=== PATIENT | male | born 1970 | race American Indian/Alaskan Native ===

== ENCOUNTER 2017-04-14 20:44 | Emergency (ER) | payer MEDICAID, OTHER ==
[2017-04-14 20:45] VITALS: BMI 29.9
[2017-04-14 20:50] VITALS: BP 134/59; PULSE 72; RESP 16; TEMP 97.9; O2SAT 98
--- NOTE | 2017-04-14 21:32 | ED PDOC ---
HPI: General Adult Time Seen by Provider: 04/14/17 20:54 Chief Complaint (Nursing): Hip Pain Chief Complaint (Provider): Hip Pain History Per: Patient History/Exam Limitations: no limitations Onset/Duration Of Symptoms: Hrs Current Symptoms Are (Timing): Still Present Additional Complaint(s): 46 y/o male presents to the emergency department with a complaint of a hip pain all day today. Admits to come alcohol ingestion today. Denies any further medical complaints. Pt states he did not fall. PT ambulating at scene according to EMS. Past Medical History Reviewed: Historical Data, Nursing Documentation, Vital Signs Vital Signs: Last Vital Signs Temp 97.9 F 04/14/17 20:48 Pulse 72 04/14/17 20:48 Resp 16 04/14/17 20:48 BP 134/59 L 04/14/17 20:48 Pulse Ox 98 04/14/17 21:33 - Medical History PMH: Anxiety, Asthma, Back Problems, Depression, Diabetes, Gastritis, Seizures ( last reported seizure at age 11.) Denies: Hepatitis, HIV, HTN, Chronic Kidney Disease, Sexually Transmitted Disease - Surgical History Surgical History: Appendectomy - Family History Family History: States: Unknown Family Hx - Social History Current smoker - smoking cessation education provided: Yes (Light Smoker < 10 Cigarettes Daily ) Alcohol: Social Drugs: Cocaine, Other (Heroin ) - Immunization History Hx Tetanus Toxoid Vaccination: No Hx Influenza Vaccination: No Hx Pneumococcal Vaccination: No - Home Medications Home Medications: Ambulatory Orders Medication Instructions Recorded Metformin Hydrochloride [Metformin] 500 mg PO BID 08/25/15 Ibuprofen [Motrin] 600 mg PO Q6 #20 tab 10/20/16 - Allergies Allergies/Adverse Reactions: Allergies Allergy/AdvReac Type Severity Reaction Status Date / Time No Known Allergies Allergy Verified 12/16/16 17:38 Review of Systems ROS Statement: Except As Marked, All Systems Reviewed And Found Negative Musculoskeletal: Positive for: Other (Hip pain ) Physical Exam - Reviewed Nursing Documentation Reviewed: Yes Vital Signs Reviewed: Yes - Physical Exam Appears: Positive for: Non-toxic, No Acute Distress Head Exam: Positive for: ATRAUMATIC, NORMOCEPHALIC Skin: Positive for: Normal Color, Warm, Dry ENT: Positive for: Normal ENT Inspection. Negative for: Pharyngeal Erythema Neck: Positive for: Normal, Supple Cardiovascular/Chest: Positive for: Regular Rate, Rhythm. Negative for: Murmur Respiratory: Positive for: Normal Breath Sounds. Negative for: Accessory Muscle Use, Respiratory Distress Gastrointestinal/Abdominal: Positive for: Normal Exam, Soft. Negative for: Tenderness Extremity: Positive for: Normal ROM. Negative for: Pedal Edema Neurologic/Psych: Positive for: Alert, Oriented - ECG O2 Sat by Pulse Oximetry: 98 (RA) Pulse Ox Interpretation: Normal Medical Decision Making Medical Decision Making: Time: 20:54 Initial Impression: Hip Pain Initial Plan: --Motrin 600 mg PO --Revaluation PT sleeping in room and when nurse comes to give medication he begins to yell that he is in pain than refused medication. Scribe Attestation: Documented by Juany Klein, acting as a scribe for Crystal Cartagena PA-C. Provider Scribe Attestation: All medical record entries made by the Scribe were at my direction and personally dictated by me. I have reviewed the chart and agree that the record accurately reflects my personal performance of the history, physical exam, medical decision making, and the department course for this patient. I have also personally directed, reviewed, and agree with the discharge instructions and disposition. Disposition - Clinical Impression Clinical Impression: Back pain - Patient ED Disposition Is Patient to be Admitted: No Counseled Patient/Family Regarding: Diagnosis, Need For Followup - Disposition Referrals: [facility] [Outside] [facility] [Outside] Disposition: Routine/Home Disposition Time: 22:15 Condition: GOOD Instructions: Acute Low Back Pain (ED)
== END 2017-04-14 22:27 | disposition home or self-care (01) ==
LOC: H.ER 20:44
DX: M54.9 Dorsalgia, unspecified (principal); M25.559 Pain in unspecified hip; E11.9 Type 2 diabetes mellitus without complications; F17.210 Nicotine dependence, cigarettes, uncomplicated; F32.9 Major depressive disorder, single episode, unspecified; F41.9 Anxiety disorder, unspecified; J45.909 Unspecified asthma, uncomplicated; Z79.84 Long term (current) use of oral hypoglycemic drugs

== ENCOUNTER 2017-05-12 04:40 | Emergency (ER) | payer SELFPAY ==
[2017-05-12 04:41] VITALS: BMI 29.9
[2017-05-12 05:03] VITALS: BP 137/76; PULSE 105; RESP 18; TEMP 98.3; O2SAT 100
--- NOTE | 2017-05-12 06:12 | ED PDOC ---
HPI: Skin/Bite Injury Time Seen by Provider: 05/12/17 04:57 Chief Complaint (Nursing): Abnormal Skin Integrity Chief Complaint (Provider): Bug bites History Per: Patient History/Exam Limitations: no limitations Onset/Duration Of Symptoms: Mins (prior to arrival) Current Symptoms Are (Timing): Still Present Additional Complaint(s): Gui Jean is a 46 year old male with previous medical history of eczema, anxiety, and substance abuse, who presents to the emergency department with complaints of diffused bug bites associated with itching and dry skin ongoing prior to arrival. Denies any fever or further medical complaints. PMD: none provided Past Medical History Reviewed: Historical Data, Nursing Documentation, Vital Signs Vital Signs: Last Vital Signs Temp 98.3 F 05/12/17 05:01 Pulse 105 H 05/12/17 05:01 Resp 18 05/12/17 05:01 BP 137/76 05/12/17 05:01 Pulse Ox 100 05/12/17 20:29 - Medical History PMH: Anxiety, Asthma, Back Problems, Depression, Diabetes, Gastritis, Seizures ( last reported seizure at age 11.) Denies: Hepatitis, HIV, HTN, Chronic Kidney Disease, Sexually Transmitted Disease - Surgical History Surgical History: Appendectomy - Family History Family History: States: Unknown Family Hx - Social History Current smoker - smoking cessation education provided: No Alcohol: > 2 Drinks/Day Drugs: Denies - Immunization History Hx Tetanus Toxoid Vaccination: No Hx Influenza Vaccination: No Hx Pneumococcal Vaccination: No - Home Medications Home Medications: Ambulatory Orders Medication Instructions Recorded Metformin Hydrochloride [Metformin] 500 mg PO BID 08/25/15 Ibuprofen [Motrin] 600 mg PO Q6 #20 tab 10/20/16 Cephalexin [Keflex] 500 mg PO Q6H #28 capsule 05/12/17 - Allergies Allergies/Adverse Reactions: Allergies Allergy/AdvReac Type Severity Reaction Status Date / Time No Known Allergies Allergy Verified 12/16/16 17:38 Review of Systems ROS Statement: Except As Marked, All Systems Reviewed And Found Negative Constitutional: Negative for: Fever Skin: Positive for: Rash (diffused, dry and itchy bug bites) Physical Exam - Reviewed Nursing Documentation Reviewed: Yes Vital Signs Reviewed: Yes - Physical Exam Appears: Positive for: Well, Non-toxic, No Acute Distress Head Exam: Positive for: ATRAUMATIC, NORMAL INSPECTION, NORMOCEPHALIC Skin: Positive for: Normal Color, Warm, Rash (bites on abdomen and left arm. Left arm has mild erythema and dry skin surrounding affected area) Respiratory: Positive for: CNT, Normal Breath Sounds Gastrointestinal/Abdominal: Negative for: Tenderness Back: Negative for: L CVA Tenderness, R CVA Tenderness Neurologic/Psych: Positive for: Alert, Oriented - ECG O2 Sat by Pulse Oximetry: 100 (RA) Pulse Ox Interpretation: Normal Medical Decision Making Medical Decision Making: Initial Impression: Bug bites Initial Plan: * Keflex 500mg PO Upon provider reevaluation patient is medically stable and requires no further treatment in the ED at this time. Patient will be discharged home with Rx for Keflex 500mg. Counseling was provided and all questions were answered regarding diagnosis and need for follow up with PCP. There is agreement to discharge plan. Return if symptoms persist or worsen. Clinical Impression: Eczema Scribe Attestation: Documented by Karli Moulton, acting as a scribe for Mathew Marr MD. Provider Scribe Attestation: All medical record entries made by the Scribe were at my direction and personally dictated by me. I have reviewed the chart and agree that the record accurately reflects my personal performance of the history, physical exam, medical decision making, and the department course for this patient. I have also personally directed, reviewed, and agree with the discharge instructions and disposition. Disposition - Clinical Impression Clinical Impression: Eczema - Patient ED Disposition Is Patient to be Admitted: No Counseled Patient/Family Regarding: Studies Performed - Disposition Referrals: [facility] [Outside] [facility] [Outside] Disposition: Routine/Home Disposition Time: 05:30 Condition: IMPROVED Additional Instructions: follow up in clinic in 2 days for wound check return to the ED with any worsening or concerning symptoms. Prescriptions: Cephalexin [Keflex] 500 mg PO Q6H #28 capsule Instructions: Contact Dermatitis (ED)
== END 2017-05-12 06:13 | disposition home or self-care (01) ==
LOC: H.ER 04:40
DX: L20.9 Atopic dermatitis, unspecified (principal); E11.9 Type 2 diabetes mellitus without complications; Z79.84 Long term (current) use of oral hypoglycemic drugs

== ENCOUNTER 2017-09-21 10:46 | Emergency (ER) | payer MEDICAID, SELFPAY ==
[2017-09-21 10:49] VITALS: TEMP 97.4; O2SAT 98
[2017-09-21 10:50] VITALS: BMI 25.0
--- NOTE | 2017-09-21 11:43 | ED PDOC ---
HPI: General Adult Time Seen by Provider: 09/21/17 11:02 Chief Complaint (Nursing): Headache Chief Complaint (Provider): medical eval. History Per: Patient History/Exam Limitations: no limitations Additional Complaint(s): 47yo M in ED with hx of substance abuse, syncope-in ER after EMS found pt-pt explains that his legs gave out from under him and fell backward hitting his head on the pavement. admits to mild nausea without vomiting and PEARSON-diffuse mild. denies numbness, weakness, unstable gait or difficultly denies vision changes with concentration denies vertigo or chest pain. Pt is with slurred speech Past Medical History Reviewed: Historical Data, Nursing Documentation, Vital Signs Vital Signs: Last Vital Signs Temp 97.4 F L 09/21/17 10:49 Pulse 78 09/21/17 10:49 Resp 16 09/21/17 10:49 BP 114/80 09/21/17 10:49 Pulse Ox 98 09/21/17 12:34 - Medical History PMH: Anxiety, Asthma, Back Problems, Depression, Fractures (Ulnar Fracture), Gastritis, Chronic Kidney Disease, Seizures (last seizure age 11) Denies: Diabetes, Hepatitis, HIV, HTN, Sexually Transmitted Disease - Surgical History Surgical History: Appendectomy - Family History Family History: States: No Known Family Hx - Home Medications Home Medications: Ambulatory Orders Medication Instructions Recorded Metformin Hydrochloride [Metformin] 500 mg PO BID 08/25/15 Ibuprofen [Motrin] 600 mg PO Q6 #20 tab 10/20/16 Cephalexin [Keflex] 500 mg PO Q6H #28 capsule 05/12/17 Cephalexin [Keflex] 500 mg PO TID #21 capsule 07/18/17 Ibuprofen [Motrin] 600 mg PO Q6 PRN #15 tab 07/18/17 Fluconazole [Diflucan] 150 mg PO QWK #4 tab 08/04/17 Ibuprofen [Motrin] 600 mg PO Q6 PRN #15 tab 09/15/17 - Allergies Allergies/Adverse Reactions: Allergies Allergy/AdvReac Type Severity Reaction Status Date / Time No Known Allergies Allergy Verified 09/17/17 23:18 Review of Systems ROS Statement: Except As Marked, All Systems Reviewed And Found Negative Constitutional: Negative for: Fever, Chills, Weakness, Malaise Eyes: Negative for: Vision Change Cardiovascular: Negative for: Chest Pain, Palpitations Gastrointestinal: Positive for: Nausea. Negative for: Vomiting, Abdominal Pain Neurological: Positive for: Headache. Negative for: Weakness, Numbness, Incoordination, Change in Speech, Confusion, Seizures, Altered Mental Status, Dizziness Physical Exam - Reviewed Nursing Documentation Reviewed: Yes Vital Signs Reviewed: Yes - Physical Exam Appears: Positive for: Non-toxic, No Acute Distress Head Exam: Positive for: ATRAUMATIC, NORMAL INSPECTION, NORMOCEPHALIC Skin: Positive for: Normal Color, Warm, DRY Eye Exam: Positive for: Normal appearance, EOMI, Conjunctival injection. Negative for: PERRL (pintpoint pupils b/l, ) ENT: Positive for: Normal ENT Inspection Cardiovascular/Chest: Positive for: Regular Rate, Rhythm Respiratory: Positive for: CNT, Normal Breath Sounds Extremity: Positive for: Normal ROM Neurologic/Psych: Positive for: Alert, mechanic insulator II-XII (intact), Oriented, Other (pt with slurred speech, and unstable gait. pt is somnolent. ). Negative for: Motor /Sensory Deficits - Laboratory Results Result Diagrams: 09/21/17 11:30 09/21/17 11:30 - ECG O2 Sat by Pulse Oximetry: 98 - CT Scan/US head Other Rad Studies (CT/US): Radiology Report Reviewed (no actue bleed noted. ) - Progress ED Course And Treament: Orders Category Date Time Status HEAD W/O CONTRAST [CT] Stat CT 09/21/17 11:11 Completed ALCOHOL SERUM Stat Chem 09/21/17 11:30 Received COMP METABOLIC PANEL Stat Chem 09/21/17 11:30 Received DRUG SCREEN, URINE Stat Chem 09/21/17 11:14 Ordered CBC (WITH DIFFERENTIAL) Stat ROBIN 09/21/17 11:30 Completed Ondansetron [Zofran Inj] Med 09/21/17 11:30 Discontinued 4 mg .ROUTE .STK-MED ONE Ondansetron [Zofran Inj] Med 09/21/17 11:11 Discontinued 4 mg IVP STAT STA Glucose, Blood, POC STAT Pt Care 09/21/17 11:11 Active Medical Decision Making Medical Decision Making: pt will be d.c home no acute abnormality in labs stable well appearing and sober clinically 09/21/17 09/21/17 11:30 11:30 WBC 6.5 RBC 4.58 Hgb 13.2 Hct 38.8 MCV 84.8 MCH 28.7 MCHC 33.9 RDW 13.3 Plt Count 287 MPV 7.5 Neut % (Auto) 45.2 L Lymph % (Auto) 36.2 Glades % (Auto) 9.4 Eos % (Auto) 8.3 H Baso % (Auto) 0.9 Neut # 2.9 Lymph # 2.4 Glades # 0.6 Eos # 0.5 Baso # 0.1 Sodium 145 Potassium 3.9 Chloride 107 Carbon Dioxide 28 Anion Gap 13 BUN 14 Creatinine 0.6 L Est GFR ( Amer) > 60 Est GFR (Non-Af Amer) > 60 Random Glucose 88 Calcium 8.8 Total Bilirubin 0.4 AST 60 H ALT 83 H Alkaline Phosphatase 52 Total Protein 7.5 Albumin 4.0 Globulin 3.5 Albumin/Globulin Ratio 1.1 Alcohol, Quantitative < 10 Disposition - Clinical Impression Clinical Impression: Fall - Patient ED Disposition Is Patient to be Admitted: No - Disposition Disposition: Routine/Home Disposition Time: 14:27 Condition: IMPROVED Instructions: Fall Prevention for Older Adults (ED) Forms: [facility] (Tongan)
[2017-09-21 11:52] LABS: BASO # 0.1 K/uL (0.0-0.2); BASO % 0.9 % (0.0-2.0); EOS # 0.5 K/uL (0.0-0.7); EOS % 8.3 % (0.0-4.0); HEMATOCRIT 38.8 % (35.0-51.0); LYMPH # 2.4 K/uL (1.0-4.3); LYMPH % 36.2 % (20.0-40.0); MEAN CELL VOLUME 84.8 fl (80.0-94.0); MEAN CORPUSCULAR HEMOGLOBIN 28.7 pg (27.0-31.0); MEAN CORPUSCULAR HGB CONC 33.9 g/dL (33.0-37.0); MEAN PLATELET VOLUME 7.5 fl (7.2-11.7); MONO # 0.6 K/uL (0.0-0.8); MONO % 9.4 % (0.0-10.0); NEUT # 2.9 K/uL (1.8-7.0); NEUT % 45.2 % (50.0-75.0); NRBC % 0.1 % (0.0-0.0); RED CELL DISTRIBUTION WIDTH 13.3 % (11.5-14.5); WHITE BLOOD COUNT 6.5 K/uL (4.8-10.8)
--- NOTE | 2017-09-21 12:13 | CT ---
PROCEDURE: CT HEAD WITHOUT CONTRAST. HISTORY: head injury sustained after fall unknown Etoh COMPARISON: Comparison made with CT scan brain dated 09/13/2017 TECHNIQUE: Axial computed tomography images were obtained through the head/brain without intravenous contrast. Radiation dose: Total exam DLP = 1159.43 mGy-cm. This CT exam was performed using one or more of the following dose reduction techniques: Automated exposure control, adjustment of the mA and/or kV according to patient size, and/or use of iterative reconstruction technique. FINDINGS: HEMORRHAGE: No acute parenchymal, subarachnoid or extra-axial hemorrhage. BRAIN: Suspect minor chronic periventricular white matter ischemic changes. Mild central volume loss. VENTRICLES: No obstructive hydrocephalus. CALVARIUM: There are no acute calvarial fractures. PARANASAL SINUSES: Mild mucosal thickening seen within both maxillary antra left greater than right. There is also mild mucosal thickening within the ethmoid air complex. Minimal mucosal thickening within the right chamber sphenoid sinus improved since prior study. . Frontal sinus remains hypoplastic unchanged. . MASTOID AIR CELLS: Unremarkable as visualized. No inflammatory changes. OTHER FINDINGS: None. IMPRESSION: No acute intracranial hemorrhage. Suspect minor chronic periventricular white matter ischemic changes. Mild central volume loss
[2017-09-21 12:17] LABS: ALB/GLOB RATIO 1.1 (1.0-2.1); ALCOHOL SERUM < 10 mg/dl (0-10); ALKALINE PHOSPHATASE 52 U/L (38-126); ALT/SGPT 83 U/L (21-72); AST/SGOT 60 U/L (17-59); BILIRUBIN,TOTAL 0.4 mg/dl (0.2-1.3); BLOOD UREA NITROGEN 14 mg/dl (9-20); CALCIUM 8.8 mg/dL (8.4-10.2); CARBON DIOXIDE 28 mmol/L (22-30); CHLORIDE 107 mmol/L (98-107); GFR AFRICAN-AMERICAN > 60; GLUCOSE,RANDOM 88 mg/dL (75-110); POTASSIUM 3.9 MMOL/L (3.6-5.0); SODIUM 145 mmol/l (132-148); TOTAL PROTEIN 7.5 G/DL (6.3-8.2)
[2017-09-21 17:03] VITALS: BP 107/59; PULSE 64; RESP 18
== END 2017-09-21 16:18 | disposition home or self-care (01) ==
LOC: H.ER 10:46
DX: S09.90XA Unspecified injury of head, initial encounter (principal); W19.XXXA Unspecified fall, initial encounter; Y92.89 Other specified places as the place of occurrence of the external cause; F19.10 Other psychoactive substance abuse, uncomplicated; F32.9 Major depressive disorder, single episode, unspecified; F41.9 Anxiety disorder, unspecified; J45.909 Unspecified asthma, uncomplicated; N18.9 Chronic kidney disease, unspecified; Z79.84 Long term (current) use of oral hypoglycemic drugs
CPT/HCPCS: 70450; 80053; 80320; 82948; 85025; 96374; 99285; J2405

== ENCOUNTER 2017-10-19 18:43 | Emergency (ER) | payer MEDICAID, SELFPAY ==
[2017-10-19 18:44] VITALS: BMI 25.0
[2017-10-19 18:49] VITALS: BP 115/52; PULSE 130; RESP 16; TEMP 98.3; O2SAT 99
[2017-10-19] MEDS ORDERED: Sodium Chloride 0.9% 1,000 ML IV STA (19:43)
[2017-10-19] MEDS ORDERED: Levalbuterol 1.25 MG/3 ML Inhal Soln UD INH ONE (19:43)
--- NOTE | 2017-10-19 19:46 | ED PDOC ---
HPI: Psych/Substance Abuse Time Seen by Provider: 10/19/17 19:35 Chief Complaint (Nursing): Substance Abuse Chief Complaint (Provider): substance abuse History Per: Patient (47 y/o male well known to ED here for sob. H/o asthma h/o polysubstance abuse. Admits use of heroine today. Denies any cough/fever.) Past Medical History Reviewed: Historical Data, Nursing Documentation, Vital Signs Vital Signs: Last Vital Signs Temp 98.3 F 10/19/17 18:45 Pulse 130 H 10/19/17 18:45 Resp 16 10/19/17 18:45 BP 115/52 L 10/19/17 18:45 Pulse Ox 99 10/19/17 18:45 - Medical History PMH: Anxiety, Asthma, Back Problems, Depression, Fractures (Ulnar Fracture), Gastritis, Chronic Kidney Disease, Seizures (last seizure age 11) Denies: Diabetes, Hepatitis, HIV, HTN, Sexually Transmitted Disease - Surgical History Surgical History: Appendectomy - Family History Family History: States: No Known Family Hx - Home Medications Home Medications: Ambulatory Orders Medication Instructions Recorded Metformin Hydrochloride [Metformin] 500 mg PO BID 08/25/15 Ibuprofen [Motrin] 600 mg PO Q6 #20 tab 10/20/16 Cephalexin [Keflex] 500 mg PO Q6H #28 capsule 05/12/17 Cephalexin [Keflex] 500 mg PO TID #21 capsule 07/18/17 Ibuprofen [Motrin] 600 mg PO Q6 PRN #15 tab 07/18/17 Fluconazole [Diflucan] 150 mg PO QWK #4 tab 08/04/17 Ibuprofen [Motrin] 600 mg PO Q6 PRN #15 tab 09/15/17 - Allergies Allergies/Adverse Reactions: Allergies Allergy/AdvReac Type Severity Reaction Status Date / Time No Known Allergies Allergy Verified 09/17/17 23:18 Review of Systems ROS Statement: Except As Marked, All Systems Reviewed And Found Negative Physical Exam - Reviewed Nursing Documentation Reviewed: Yes Vital Signs Reviewed: Yes - Physical Exam Appears: Positive for: Well, Non-toxic, No Acute Distress Head Exam: Positive for: ATRAUMATIC, NORMAL INSPECTION, NORMOCEPHALIC Skin: Positive for: Normal Color, Warm, DRY Eye Exam: Positive for: EOMI, Normal appearance, PERRL ENT: Positive for: Normal ENT Inspection Neck: Positive for: Normal, Painless ROM Cardiovascular/Chest: Positive for: Regular Rate, Rhythm Respiratory: Positive for: Normal Breath Sounds, Wheezing Gastrointestinal/Abdominal: Positive for: Normal Exam, Bowel Sounds, Soft Back: Positive for: Normal Inspection Extremity: Positive for: Normal ROM Neurologic/Psych: Positive for: Alert, Oriented, Other (appears sleepy; easily arousable and verbally responsive to questions) - ECG O2 Sat by Pulse Oximetry: 99 - Progress ED Course And Treament: xopenex x 1 treatment ordered ns 1 liter wide open ordered ekg 109 sinus tachycardia no ectopy no acute changes left prior to treatment/labs Disposition - Clinical Impression Clinical Impression: Polysubstance (excluding opioids) dependence - Patient ED Disposition Is Patient to be Admitted: No - Disposition Disposition: Left W/O Treatment Disposition Time: 20:28 Condition: FAIR Forms: [facility] (Chinese)
--- NOTE | 2017-10-20 11:52 | CARD ---
APPROVED REPORT EKG Measurement Heart [id number] ND [id number] <Conclusion> Sinus tachycardia Otherwise normal ECG
== END 2017-10-19 20:27 | disposition left against medical advice (07) ==
LOC: H.ER 18:43
DX: F19.10 Other psychoactive substance abuse, uncomplicated (principal); F32.9 Major depressive disorder, single episode, unspecified; F41.9 Anxiety disorder, unspecified; J45.909 Unspecified asthma, uncomplicated; N18.9 Chronic kidney disease, unspecified; Z79.84 Long term (current) use of oral hypoglycemic drugs

== ENCOUNTER 2017-10-21 20:46 | Emergency (ER) | payer MEDICAID, SELFPAY ==
[2017-10-21 20:47] VITALS: BMI 25.0
[2017-10-21 21:17] VITALS: RESP 17; TEMP 98.1
--- NOTE | 2017-10-21 21:42 | ED PDOC ---
HPI: Psych/Substance Abuse Time Seen by Provider: 10/21/17 21:37 Chief Complaint (Nursing): Substance Abuse History Per: EMS (Brought by EMS for ? intoxication. Pt admits to heroin uase last used today.) Modifying Factor(s): Narcotics Past Medical History Vital Signs: Last Vital Signs Temp 98.1 F 10/21/17 21:14 Pulse 81 10/21/17 21:14 Resp 17 10/21/17 21:14 BP 133/81 10/21/17 21:14 Pulse Ox 100 10/21/17 21:14 - Medical History PMH: Anxiety, Asthma, Back Problems, Depression, Fractures (Ulnar Fracture), Gastritis, Chronic Kidney Disease, Seizures (last seizure age 11) Denies: Diabetes, Hepatitis, HIV, HTN, Sexually Transmitted Disease - Surgical History Surgical History: Appendectomy - Family History Family History: States: Unknown Family Hx - Home Medications Home Medications: Ambulatory Orders Medication Instructions Recorded Metformin Hydrochloride [Metformin] 500 mg PO BID 08/25/15 Ibuprofen [Motrin] 600 mg PO Q6 #20 tab 10/20/16 Cephalexin [Keflex] 500 mg PO Q6H #28 capsule 05/12/17 Cephalexin [Keflex] 500 mg PO TID #21 capsule 07/18/17 Ibuprofen [Motrin] 600 mg PO Q6 PRN #15 tab 07/18/17 Fluconazole [Diflucan] 150 mg PO QWK #4 tab 08/04/17 Ibuprofen [Motrin] 600 mg PO Q6 PRN #15 tab 09/15/17 - Allergies Allergies/Adverse Reactions: Allergies Allergy/AdvReac Type Severity Reaction Status Date / Time No Known Allergies Allergy Verified 09/17/17 23:18 Review of Systems Review Of Systems: ROS cannot be obtained secondary to pt's inabilty to answer questions. Physical Exam - Physical Exam Appears: Positive for: Non-toxic, No Acute Distress Head Exam: Positive for: ATRAUMATIC, NORMAL INSPECTION, NORMOCEPHALIC Skin: Positive for: Normal Color, Warm, DRY Cardiovascular/Chest: Positive for: Regular Rate, Rhythm Respiratory: Positive for: CNT, Normal Breath Sounds Extremity: Positive for: Normal ROM Neurologic/Psych: Negative for: Alert (Sleepy arousable), Motor/Sensory Deficits - ECG O2 Sat by Pulse Oximetry: 100 Disposition - Clinical Impression Clinical Impression: Polysubstance abuse - Patient ED Disposition Is Patient to be Admitted: Transfer of Care - Disposition Disposition: Transfer of Care Disposition Time: 00:00 Condition: FAIR Forms: [facility] (Maori) Patient Signed Over To: Mathew Marr
--- NOTE | 2017-10-22 00:47 | ED PDOC ---
- ECG O2 Sat by Pulse Oximetry: 100 (RA) Pulse Ox Interpretation: Normal Medical Decision Making Medical Decision Makin:00 Patient signed out to me by Dr. Camara pending clinical sobriety. Reassess --pt comfortable, alert and oriented, ambulating w stable gait. Scribe Attestation: Documented by Matthew Donohue acting as a scribe for Mathew Marr MD. Provider Attestation: All medical record entries made by the Scribe were at my direction and personally dictated by me. I have reviewed the chart and agree that the record accurately reflects my personal performance of the history, physical exam, medical decision making, and the department course for this patient. I have also personally directed, reviewed, and agree with the discharge instructions and disposition. Disposition - Clinical Impression Clinical Impression: Polysubstance abuse - POA Present On Arrival: None - Disposition Disposition: Routine/Home Disposition Time: 04:00 Condition: IMPROVED Additional Instructions: follow up with your primary doctor in 1-2 days return to the ED with any worsening or concerning symptoms Forms: [employer] (Gibraltarian)
[2017-10-22 04:53] VITALS: BP 118/75; PULSE 72
[2017-10-23 12:30] VITALS: O2SAT 100
== END 2017-10-22 04:58 | disposition home or self-care (01) ==
LOC: H.ER 20:46
DX: F19.10 Other psychoactive substance abuse, uncomplicated (principal); F32.9 Major depressive disorder, single episode, unspecified; F41.9 Anxiety disorder, unspecified; J45.909 Unspecified asthma, uncomplicated; N18.9 Chronic kidney disease, unspecified; Z79.84 Long term (current) use of oral hypoglycemic drugs

== ENCOUNTER 2017-10-23 23:35 | Emergency (ER) | payer MEDICAID, SELFPAY ==
[2017-10-23 23:35] VITALS: BMI 25.0
[2017-10-23 23:39] VITALS: BP 127/86; PULSE 80; RESP 16; TEMP 97.2; O2SAT 100
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
== END 2017-10-24 05:47 | disposition home or self-care (01) ==
LOC: H.ER 23:35
DX: F11.10 Opioid abuse, uncomplicated (principal); M54.9 Dorsalgia, unspecified; F32.9 Major depressive disorder, single episode, unspecified; F41.9 Anxiety disorder, unspecified; G89.29 Other chronic pain; J45.909 Unspecified asthma, uncomplicated; Z79.84 Long term (current) use of oral hypoglycemic drugs

== ENCOUNTER 2017-10-24 08:36 | Emergency (ER) | payer MEDICAID, SELFPAY ==
[2017-10-24 08:51] VITALS: BMI 29.9
[2017-10-24 08:52] VITALS: RESP 20
--- NOTE | 2017-10-24 09:51 | ED PDOC ---
HPI: SOB/CHF/COPD Time Seen by Provider: 10/24/17 09:05 Chief Complaint (Nursing): Shortness Of Breath Chief Complaint (Provider): Shortness of breath History Per: Patient History/Exam Limitations: no limitations Additional Complaint(s): Gui is a 47 y/o male with a history of polysubstance abuse who presents to the ED complaining of shortness of breath. Upon provider's arrival to exam room , patient is sleeping and has no complaints. He is well known to provider and ED. PMD: None Provided Past Medical History Reviewed: Historical Data, Nursing Documentation, Vital Signs Vital Signs: Last Vital Signs Temp 97.6 F 10/24/17 08:51 Pulse 50 L 10/24/17 08:51 Resp 20 10/24/17 08:51 BP 143/78 10/24/17 08:51 Pulse Ox 96 10/24/17 14:26 - Medical History PMH: Anxiety, Asthma, Back Problems, Depression, Fractures (Ulnar Fracture), Gastritis, Chronic Kidney Disease, Seizures (last seizure age 11) Denies: Diabetes, Hepatitis, HIV, HTN, Sexually Transmitted Disease - Surgical History Surgical History: Appendectomy - Family History Family History: States: Unknown Family Hx - Home Medications Home Medications: Ambulatory Orders Medication Instructions Recorded Metformin Hydrochloride [Metformin] 500 mg PO BID 08/25/15 Ibuprofen [Motrin] 600 mg PO Q6 #20 tab 10/20/16 Cephalexin [Keflex] 500 mg PO Q6H #28 capsule 05/12/17 Cephalexin [Keflex] 500 mg PO TID #21 capsule 07/18/17 Ibuprofen [Motrin] 600 mg PO Q6 PRN #15 tab 07/18/17 Fluconazole [Diflucan] 150 mg PO QWK #4 tab 08/04/17 Ibuprofen [Motrin] 600 mg PO Q6 PRN #15 tab 09/15/17 - Allergies Allergies/Adverse Reactions: Allergies Allergy/AdvReac Type Severity Reaction Status Date / Time No Known Allergies Allergy Verified 10/23/17 23:37 Review of Systems ROS Statement: Except As Marked, All Systems Reviewed And Found Negative Respiratory: Positive for: Shortness of Breath Physical Exam - Reviewed Nursing Documentation Reviewed: Yes Vital Signs Reviewed: Yes - Physical Exam Appears: Positive for: Well, Non-toxic, No Acute Distress Skin: Positive for: Normal Color, Warm, Dry Cardiovascular/Chest: Positive for: Regular Rate, Rhythm Respiratory: Positive for: Normal Breath Sounds. Negative for: Respiratory Distress Gastrointestinal/Abdominal: Positive for: Normal Exam Neurologic/Psych: Positive for: Alert, Oriented - Laboratory Results Result Diagrams: 10/24/17 11:23 10/24/17 11:23 - ECG O2 Sat by Pulse Oximetry: 96 (RA) Pulse Ox Interpretation: Normal Medical Decision Making Medical Decision Making: Time: 9:40 Initial Impression: Initial Plan: --CMP --Urine Drug Screen --CBC Time: 12:59 --Chest XR Time: 2:00 --Patient feels better --Chest XR was reviewed and is negative --Patient is stable for discharge home Scribe Attestation: Documented by Alonso Lino, acting as a scribe for Mathew Marr MD Provider Scribe Attestation: All medical record entries made by the Scribe were at my direction and personally dictated by me. I have reviewed the chart and agree that the record accurately reflects my personal performance of the history, physical exam, medical decision making, and the department course for this patient. I have also personally directed, reviewed, and agree with the discharge instructions and disposition. Disposition - Clinical Impression Clinical Impression: Shortness of breath - Patient ED Disposition Is Patient to be Admitted: No - Disposition Referrals: [facility] [Outside] [facility] [Outside] Disposition: Routine/Home Disposition Time: 11:00 Condition: IMPROVED Additional Instructions: follow up with your primary doctor in 1-2 days return to the ED with any worsening or concerning symptoms Instructions: Dyspnea (ED) Forms: [employer] (Bermudian)
[2017-10-24 11:30] LABS: BASO % 0.6 % (0.0-2.0); EOS # 0.7 K/uL (0.0-0.7); EOS % 11.9 % (0.0-4.0); HEMATOCRIT 38.2 % (35.0-51.0); LYMPH # 1.6 K/uL (1.0-4.3); LYMPH % 26.8 % (20.0-40.0); MEAN CELL VOLUME 90.3 fl (80.0-94.0); MEAN CORPUSCULAR HEMOGLOBIN 28.7 pg (27.0-31.0); MEAN CORPUSCULAR HGB CONC 31.7 g/dL (33.0-37.0); MEAN PLATELET VOLUME 7.6 fl (7.2-11.7); MONO # 0.6 K/uL (0.0-0.8); MONO % 10.2 % (0.0-10.0); NEUT # 2.9 K/uL (1.8-7.0); NEUT % 50.5 % (50.0-75.0); NRBC % 0.1 % (0.0-0.0); RED CELL DISTRIBUTION WIDTH 15.1 % (11.5-14.5); WHITE BLOOD COUNT 5.8 K/uL (4.8-10.8)
[2017-10-24 11:40] LABS: BILIRUBIN,TOTAL 0.9 mg/dl (0.2-1.3); CALCIUM 8.6 mg/dL (8.4-10.2); CARBON DIOXIDE 25 mmol/L (22-30); CHLORIDE 110 mmol/L (98-107); GFR AFRICAN-AMERICAN > 60; GLUCOSE,RANDOM 84 mg/dL (75-110); SODIUM 144 mmol/l (132-148)
[2017-10-24 11:42] LABS: ALKALINE PHOSPHATASE 46 U/L (38-126); ALT/SGPT 63 U/L (21-72); AST/SGOT 59 U/L (17-59); BLOOD UREA NITROGEN 11 mg/dl (9-20); POTASSIUM 4.8 MMOL/L (3.6-5.0); TOTAL PROTEIN 6.9 G/DL (6.3-8.2)
--- NOTE | 2017-10-24 13:57 | RAD ---
HISTORY: sob COMPARISON: Portable chest 11/25/2016. FINDINGS: LUNGS: No active pulmonary disease. PLEURA: No significant pleural effusion identified, no pneumothorax apparent. CARDIOVASCULAR: Normal. OSSEOUS STRUCTURES: No significant abnormalities. VISUALIZED UPPER ABDOMEN: Normal. OTHER FINDINGS: None. IMPRESSION: No interval acute cardiopulmonary disease appreciated.
[2017-10-24 16:36] VITALS: BP 120/70; PULSE 76; TEMP 98.6; O2SAT 98
== END 2017-10-24 16:36 | disposition home or self-care (01) ==
LOC: H.ER 08:36
DX: R06.00 Dyspnea, unspecified (principal); J45.909 Unspecified asthma, uncomplicated; F32.9 Major depressive disorder, single episode, unspecified; F41.9 Anxiety disorder, unspecified; Z79.84 Long term (current) use of oral hypoglycemic drugs

== ENCOUNTER 2017-11-03 06:38 | Emergency (ER) | payer MEDICAID, OTHER ==
[2017-11-03 06:39] VITALS: BMI 29.9
[2017-11-03 06:47] VITALS: BP 106/72; PULSE 88; RESP 16; TEMP 98; O2SAT 95
--- NOTE | 2017-11-03 08:27 | ED PDOC ---
Lower Extremity Pain/Injury Time Seen by Provider: 11/03/17 07:32 Chief Complaint (Nursing): Lower Extremity Problem/Injury Past Medical History Vital Signs: Last Vital Signs Temp 98 F 11/03/17 06:44 Pulse 88 11/03/17 06:44 Resp 16 11/03/17 06:44 BP 106/72 11/03/17 06:44 Pulse Ox 95 11/03/17 06:44 - Medical History PMH: Anxiety, Asthma, Back Problems, Depression, Fractures (Ulnar Fracture), Gastritis, Chronic Kidney Disease, Seizures (last seizure age 11) Denies: Diabetes, Hepatitis, HIV, HTN, Sexually Transmitted Disease - Surgical History Surgical History: Appendectomy - Family History Family History: States: Unknown Family Hx - Home Medications Home Medications: Ambulatory Orders Medication Instructions Recorded Metformin Hydrochloride [Metformin] 500 mg PO BID 08/25/15 Ibuprofen [Motrin] 600 mg PO Q6 #20 tab 10/20/16 Cephalexin [Keflex] 500 mg PO Q6H #28 capsule 05/12/17 Cephalexin [Keflex] 500 mg PO TID #21 capsule 07/18/17 Ibuprofen [Motrin] 600 mg PO Q6 PRN #15 tab 07/18/17 Fluconazole [Diflucan] 150 mg PO QWK #4 tab 08/04/17 Ibuprofen [Motrin] 600 mg PO Q6 PRN #15 tab 09/15/17 - Allergies Allergies/Adverse Reactions: Allergies Allergy/AdvReac Type Severity Reaction Status Date / Time No Known Allergies Allergy Verified 10/23/17 23:37 - ECG O2 Sat by Pulse Oximetry: 95 Disposition - Disposition
--- NOTE | 2017-11-03 08:50 | ED PDOC ---
HPI: General Adult Time Seen by Provider: 11/03/17 07:32 Chief Complaint (Nursing): Lower Extremity Problem/Injury Chief Complaint (Provider): Chronic Pain History Per: Patient History/Exam Limitations: no limitations Onset/Duration Of Symptoms: Persistent Current Symptoms Are (Timing): Still Present Additional Complaint(s): 47 year old male presents to ED with complaints of chronic body pain and has a past history of chronic pain and substance abuse. (+) chronic back, neck, and bilateral leg pain. Confirms that he abuses heroin and cocaine every day, and abused them this morning. Denies any new complaints or changes to pain. (-) fever, SOB, chest pain. PCP: None Past Medical History Reviewed: Historical Data, Nursing Documentation, Vital Signs Vital Signs: Last Vital Signs Temp 98 F 11/03/17 06:44 Pulse 88 11/03/17 06:44 Resp 16 11/03/17 06:44 BP 106/72 11/03/17 06:44 Pulse Ox 95 11/03/17 08:55 - Medical History PMH: Anxiety, Asthma, Back Problems, Depression, Fractures (Ulnar Fracture), Gastritis, Chronic Kidney Disease, Seizures (last seizure age 11) Denies: Diabetes, Hepatitis, HIV, HTN, Sexually Transmitted Disease - Surgical History Surgical History: Appendectomy - Family History Family History: States: No Known Family Hx - Social History Drugs: Cocaine, Opiates - Home Medications Home Medications: Ambulatory Orders Medication Instructions Recorded Metformin Hydrochloride [Metformin] 500 mg PO BID 08/25/15 Ibuprofen [Motrin] 600 mg PO Q6 #20 tab 10/20/16 Cephalexin [Keflex] 500 mg PO Q6H #28 capsule 05/12/17 Cephalexin [Keflex] 500 mg PO TID #21 capsule 07/18/17 Ibuprofen [Motrin] 600 mg PO Q6 PRN #15 tab 07/18/17 Fluconazole [Diflucan] 150 mg PO QWK #4 tab 08/04/17 Ibuprofen [Motrin] 600 mg PO Q6 PRN #15 tab 09/15/17 - Allergies Allergies/Adverse Reactions: Allergies Allergy/AdvReac Type Severity Reaction Status Date / Time No Known Allergies Allergy Verified 10/23/17 23:37 Review of Systems ROS Statement: Except As Marked, All Systems Reviewed And Found Negative Constitutional: Negative for: Fever Cardiovascular: Negative for: Chest Pain Respiratory: Negative for: Shortness of Breath Musculoskeletal: Positive for: Neck Pain (chronic), Back Pain (chronic), Leg Pain (chronic bilateral leg pain) Physical Exam - Reviewed Nursing Documentation Reviewed: Yes Vital Signs Reviewed: Yes - Physical Exam Appears: Positive for: Non-toxic, No Acute Distress (disheveled). Negative for : Uncomfortable Head Exam: Positive for: ATRAUMATIC, NORMOCEPHALIC Skin: Positive for: Normal Color, Warm, Dry ENT: Positive for: Normal ENT Inspection Neck: Positive for: Painless ROM, Supple. Negative for: Normal (paraspinal neck and trapezius TTP), Decreased ROM Cardiovascular/Chest: Positive for: Regular Rate, Rhythm. Negative for: Murmur Respiratory: Positive for: Normal Breath Sounds. Negative for: Respiratory Distress Gastrointestinal/Abdominal: Positive for: Normal Exam, Soft. Negative for: Tenderness Back: Positive for: Vertebral Tenderness (bilateral paraspinal lumbar tenderness ) Extremity: Positive for: Normal ROM. Negative for: Deformity Neurologic/Psych: Positive for: Alert, Oriented. Negative for: Motor/Sensory Deficits - ECG O2 Sat by Pulse Oximetry: 95 (RA) Pulse Ox Interpretation: Normal Medical Decision Making Medical Decision Makin Initial impression: chronic pain, substance abuse Initial plan: * Ativan 1mg PO * Motrin 600mg PO * Re-eval Scribe Attestation: Documented by Ashley Zamora acting as a scribe for Dannielle Orantes MD. Scribe Attestation: All medical record entries made by the Scribe were at my direction and personally dictated by me. I have reviewed the chart and agree that the record accurately reflects my personal performance of the history, physical exam, medical decision making, and the department course for this patient. I have also personally directed, reviewed, and agree with the discharge instructions and disposition. Disposition - Clinical Impression Clinical Impression: Chronic hip pain, Opiate abuse, continuous, Chronic back pain - Patient ED Disposition Is Patient to be Admitted: No Doctor Will See Patient In The: Office Counseled Patient/Family Regarding: Studies Performed, Diagnosis, Need For Followup - Disposition Referrals: [facility] [Outside] Disposition Time: 11:00 Condition: GOOD Instructions: Chronic Pain (DC), Polysubstance Abuse (ED)
== END 2017-11-03 15:27 | disposition home or self-care (01) ==
LOC: H.ER 06:38
DX: G89.29 Other chronic pain (principal); F11.10 Opioid abuse, uncomplicated; F32.9 Major depressive disorder, single episode, unspecified; F41.9 Anxiety disorder, unspecified; J45.909 Unspecified asthma, uncomplicated; N18.9 Chronic kidney disease, unspecified; Z79.84 Long term (current) use of oral hypoglycemic drugs

== ENCOUNTER 2018-01-27 23:20 | Emergency (ER) | payer MEDICAID, OTHER ==
[2018-01-27 23:21] VITALS: BMI 29.9
[2018-01-27 23:25] VITALS: RESP 16; O2SAT 95
--- NOTE | 2018-01-27 23:41 | ED PDOC ---
HPI: Psych/Substance Abuse Time Seen by Provider: 01/27/18 23:22 Chief Complaint (Nursing): Substance Abuse Chief Complaint (Provider): Substance abuse ED Caveat: Intoxicated History Per: Patient History/Exam Limitations: intoxication Onset/Duration Of Symptoms: Mins (just prior to arrival) Current Symptoms Are (Timing): Still Present Additional Complaint(s): 47 yo male, brought in by EMS with [employer]PD, is well known to the ED and the provider for multiple visits related to alcohol intoxication and substance abuse. He presents to the ED today after being found rolling on the street by [employer] and admits to the provider that he was using heroin, onset of just prior to arrival. PCP: Gerri Kimball Past Medical History Reviewed: Historical Data, Nursing Documentation, Vital Signs Vital Signs: Last Vital Signs Temp 98 F 01/27/18 23:22 Pulse 68 01/27/18 23:22 Resp 16 01/27/18 23:22 BP 105/64 01/27/18 23:22 Pulse Ox 95 01/27/18 23:22 - Medical History PMH: Anxiety, Asthma, Back Problems, Depression, Diabetes, Fractures (Ulnar Fracture), Gastritis, Chronic Kidney Disease, Seizures (last seizure age 11) Denies: Hepatitis, HIV, HTN, Sexually Transmitted Disease - Surgical History Surgical History: Appendectomy - Family History Family History: States: Unknown Family Hx - Social History Current smoker - smoking cessation education provided: Yes Alcohol: > 2 Drinks/Day Drugs: Opiates - Home Medications Home Medications: Ambulatory Orders Medication Instructions Recorded Metformin Hydrochloride [Metformin] 500 mg PO BID 08/25/15 Ibuprofen [Motrin] 600 mg PO Q6 #20 tab 10/20/16 Cephalexin [Keflex] 500 mg PO Q6H #28 capsule 05/12/17 Cephalexin [Keflex] 500 mg PO TID #21 capsule 07/18/17 Ibuprofen [Motrin] 600 mg PO Q6 PRN #15 tab 07/18/17 Fluconazole [Diflucan] 150 mg PO QWK #4 tab 08/04/17 Ibuprofen [Motrin] 600 mg PO Q6 PRN #15 tab 09/15/17 - Allergies Allergies/Adverse Reactions: Allergies Allergy/AdvReac Type Severity Reaction Status Date / Time No Known Allergies Allergy Verified 10/23/17 23:37 Review of Systems ROS Statement: Except As Marked, All Systems Reviewed And Found Negative Review Of Systems: ROS cannot be obtained secondary to pt's inabilty to answer questions. (patient denies any complaints but the patient is unreliable because he is currently intoxicated) Constitutional: Negative for: Fever Psych: Negative for: Suicidal ideation Physical Exam - Reviewed Nursing Documentation Reviewed: Yes Vital Signs Reviewed: Yes - Physical Exam Appears: Positive for: Well, Non-toxic, No Acute Distress Head Exam: Positive for: ATRAUMATIC, NORMAL INSPECTION, NORMOCEPHALIC Skin: Positive for: Normal Color, Warm, DRY Eye Exam: Positive for: EOMI, Normal appearance, PERRL ENT: Positive for: Normal ENT Inspection Neck: Positive for: Normal, Painless ROM, Supple Cardiovascular/Chest: Positive for: Regular Rate, Rhythm. Negative for: Murmur Respiratory: Positive for: Normal Breath Sounds. Negative for: Respiratory Distress Gastrointestinal/Abdominal: Positive for: Normal Exam, Soft. Negative for: Tenderness Back: Positive for: Normal Inspection. Negative for: L CVA Tenderness, R CVA Tenderness Extremity: Positive for: Normal ROM. Negative for: Pedal Edema, Deformity Neurologic/Psych: Positive for: Alert. Negative for: Motor/Sensory Deficits - Laboratory Results Result Diagrams: 01/27/18 23:59 01/27/18 23:59 - ECG O2 Sat by Pulse Oximetry: 95 (RA) Pulse Ox Interpretation: Normal Medical Decision Making Medical Decision Making: Time: --23:37 Impression: --Substance abuse Plan: --ECG --Alcohol serum --Labs --Drug Screen,Urine --Accucheck Reassess -- Scribe Attestation: Documented by Matthew Donohue acting as a scribe for Michael Nuñez MD. Provider Attestation: All medical record entries made by the Scribe were at my direction and personally dictated by me. I have reviewed the chart and agree that the record accurately reflects my personal performance of the history, physical exam, medical decision making, and the department course for this patient. I have also personally directed, reviewed, and agree with the discharge instructions and disposition. Disposition - Clinical Impression Clinical Impression: Polysubstance (excluding opioids) dependence, Heroin use - Patient ED Disposition Is Patient to be Admitted: No - Disposition Referrals: Gerri Kimball MD [Primary Care Provider] - Disposition: Routine/Home Disposition Time: 05:17 Condition: STABLE Instructions: Polysubstance Abuse Forms: [employer] (Hungarian)
[2018-01-28 00:02] LABS: BASO % 0.5 % (0.0-2.0); EOS # 0.6 K/uL (0.0-0.7); EOS % 6.2 % (0.0-4.0); HEMOGLOBIN 12.8 g/dL (12.0-18.0); LYMPH # 2.9 K/uL (1.0-4.3); LYMPH % 27.8 % (20.0-40.0); MEAN CELL VOLUME 86.3 fl (80.0-94.0); MEAN CORPUSCULAR HEMOGLOBIN 28.9 pg (27.0-31.0); MEAN CORPUSCULAR HGB CONC 33.5 g/dL (33.0-37.0); MEAN PLATELET VOLUME 7.5 fl (7.2-11.7); MONO # 0.9 K/uL (0.0-0.8); MONO % 8.5 % (0.0-10.0); NRBC % 0.4 % (0.0-0.0); RBC 4.44 Mil/uL (4.40-5.90); RED CELL DISTRIBUTION WIDTH 13.8 % (11.5-14.5); WHITE BLOOD COUNT 10.5 K/uL (4.8-10.8)
[2018-01-28 00:11] LABS: ALB/GLOB RATIO 1.1 (1.0-2.1); ALBUMIN 3.6 g/dL (3.5-5.0); ALT/SGPT 56 U/L (21-72); AST/SGOT 46 U/L (17-59); BLOOD UREA NITROGEN 11 mg/dl (9-20); CALCIUM 8.9 mg/dL (8.4-10.2); GFR AFRICAN-AMERICAN > 60; GFR NON-AFRICAN AMERICAN > 60
[2018-01-28 04:32] VITALS: BP 112/82; PULSE 76; TEMP 97
--- NOTE | 2018-01-28 09:51 | CARD ---
APPROVED REPORT EKG Measurement Heart [id number] <Conclusion> Normal sinus rhythm Normal ECG
== END 2018-01-28 06:27 | disposition home or self-care (01) ==
LOC: H.ER 23:20
DX: F11.20 Opioid dependence, uncomplicated (principal); F10.129 Alcohol abuse with intoxication, unspecified; Z79.84 Long term (current) use of oral hypoglycemic drugs

== ENCOUNTER 2018-01-28 11:35 | Inpatient (IN) | payer MEDICAID, OTHER ==
[2018-01-28 11:35] VITALS: BMI 29.9
--- NOTE | 2018-01-28 11:51 | ED PDOC ---
HPI: Psych/Substance Abuse Time Seen by Provider: 01/28/18 11:46 Chief Complaint (Nursing): Psychiatric Evaluation History Per: Patient Onset/Duration Of Symptoms: Unknown Current Symptoms Are (Timing): Still Present Suicide/Self Injury Attempted (Context): None Modifying Factor(s): None Severity: Mild Associated Symptoms: Depression Additional Complaint(s): Haering voices, depressed but denies suicidal or homicidal plan. Not taking meds. Past Medical History Vital Signs: Last Vital Signs Temp 98.2 F 01/28/18 11:40 Pulse 49 L 01/28/18 11:40 Resp 16 01/28/18 11:40 BP 129/82 01/28/18 11:40 Pulse Ox 100 01/28/18 11:40 - Medical History PMH: Anxiety, Asthma, Back Problems, Depression, Diabetes, Fractures (Ulnar Fracture), Gastritis, Chronic Kidney Disease, Seizures (last seizure age 11) Denies: Hepatitis, HIV, HTN, Sexually Transmitted Disease - Surgical History Surgical History: Appendectomy - Family History Family History: States: Unknown Family Hx - Home Medications Home Medications: Ambulatory Orders Medication Instructions Recorded Metformin Hydrochloride [Metformin] 500 mg PO BID 08/25/15 Ibuprofen [Motrin] 600 mg PO Q6 #20 tab 10/20/16 Cephalexin [Keflex] 500 mg PO Q6H #28 capsule 05/12/17 Cephalexin [Keflex] 500 mg PO TID #21 capsule 07/18/17 Ibuprofen [Motrin] 600 mg PO Q6 PRN #15 tab 07/18/17 Fluconazole [Diflucan] 150 mg PO QWK #4 tab 08/04/17 Ibuprofen [Motrin] 600 mg PO Q6 PRN #15 tab 09/15/17 - Allergies Allergies/Adverse Reactions: Allergies Allergy/AdvReac Type Severity Reaction Status Date / Time No Known Allergies Allergy Verified 10/23/17 23:37 Review of Systems ROS Statement: Except As Marked, All Systems Reviewed And Found Negative Psych: Positive for: Depression Physical Exam - Reviewed Nursing Documentation Reviewed: Yes Vital Signs Reviewed: Yes - Physical Exam Appears: Positive for: Non-toxic, No Acute Distress Head Exam: Positive for: ATRAUMATIC, NORMAL INSPECTION, NORMOCEPHALIC Skin: Positive for: Normal Color, Warm, DRY Eye Exam: Positive for: EOMI, Normal appearance, PERRL ENT: Positive for: Normal ENT Inspection Neck: Positive for: Normal, Painless ROM Cardiovascular/Chest: Positive for: Regular Rate, Rhythm Respiratory: Positive for: CNT, Normal Breath Sounds Gastrointestinal/Abdominal: Positive for: Normal Exam, Bowel Sounds, Soft Back: Positive for: Normal Inspection Extremity: Positive for: Normal ROM Neurologic/Psych: Positive for: Alert, Oriented - Laboratory Results Result Diagrams: 01/28/18 15:27 01/28/18 15:27 - ECG O2 Sat by Pulse Oximetry: 100 Medical Decision Making Medical Decision Making: Medically stable for psychiatric admission Disposition - Clinical Impression Clinical Impression: Depression - Patient ED Disposition Is Patient to be Admitted: Transfer of Care - Disposition Disposition: Transfer of Care Disposition Time: 16:54 Condition: FAIR Forms: [employer] (Korean) Patient Signed Over To: Gurmeet Gamboa III
[2018-01-28 15:44] LABS: ALB/GLOB RATIO 1.1 (1.0-2.1); ALBUMIN 3.6 g/dL (3.5-5.0); ALT/SGPT 46 U/L (21-72); AST/SGOT 41 U/L (17-59); BASO % 0.6 % (0.0-2.0); BLOOD UREA NITROGEN 12 mg/dl (9-20); CALCIUM 8.9 mg/dL (8.4-10.2); EOS # 0.6 K/uL (0.0-0.7); EOS % 8.2 % (0.0-4.0); GFR AFRICAN-AMERICAN > 60; GFR NON-AFRICAN AMERICAN > 60; LYMPH # 2.5 K/uL (1.0-4.3); LYMPH % 34.2 % (20.0-40.0); MEAN CELL VOLUME 86.3 fl (80.0-94.0); MEAN CORPUSCULAR HEMOGLOBIN 28.7 pg (27.0-31.0); MEAN CORPUSCULAR HGB CONC 33.2 g/dL (33.0-37.0); MEAN PLATELET VOLUME 7.6 fl (7.2-11.7); MONO # 0.5 K/uL (0.0-0.8); MONO % 7.4 % (0.0-10.0); NEUT # 3.6 K/uL (1.8-7.0); NEUT % 49.6 % (50.0-75.0); NRBC % 1.6 % (0.0-0.0); RBC 4.51 Mil/uL (4.40-5.90); RED CELL DISTRIBUTION WIDTH 13.9 % (11.5-14.5); WHITE BLOOD COUNT 7.2 K/uL (4.8-10.8)
[2018-01-28 17:12] LABS: BARBITURATES, UR NEGATIVE (NEGATIVE); BENZODIAZEPINES, UR NEGATIVE (NEGATIVE); OPIATES, UR POSITIVE (NEGATIVE); PHENCYCLIDINE, UR NEGATIVE (NEGATIVE)
--- NOTE | 2018-01-28 17:16 | RAD ---
HISTORY: Cough COMPARISON: 10/24/2017. FINDINGS: LUNGS: The lungs are clear. No focal consolidation PE PLEURA: No significant pleural effusion identified, no pneumothorax apparent. CARDIOVASCULAR: Normal. OSSEOUS STRUCTURES: There is moderate degenerative osteoarthrosis in the right glenohumeral joint. Otherwise the osseous structures are within normal limits. VISUALIZED UPPER ABDOMEN: Normal. OTHER FINDINGS: None. IMPRESSION: No active pulmonary disease.
--- NOTE | 2018-01-28 17:34 | ED PDOC ---
- Laboratory Results Result Diagrams: 01/28/18 15:27 01/28/18 15:27 - ECG O2 Sat by Pulse Oximetry: 100 Medical Decision Making Medical Decision Making: recd from dr enrique 5pm pending dispo from crisis 530p- admit psych ekg sinus filomena but BP adequate, asymptomatic CXR negative per radiology chem/cbc unremarkable medically stable for psychiatric admission at this time Disposition - Clinical Impression Clinical Impression: Depression - POA Present On Arrival: None - Disposition Disposition: Admitted as In-Patient Disposition Time: 17:33 Condition: FAIR Forms: [employer] (Turkish)
[2018-01-28 20:01] VITALS: O2SAT 97
[2018-01-28] MEDS ORDERED: DiphenhydrAMINE 50 mg/ml Inj IM PRN (22:13)
[2018-01-28] MEDS ORDERED: Magnesium Hydroxide Susp 30 ml UD PO PRN (22:13)
[2018-01-28] MEDS ORDERED: Alum-Mag Hydrox-Simethicone Susp (30 mL) PO PRN (22:13)
[2018-01-28 23:11] VITALS: RESP 18
[2018-01-29 07:31] LABS: T4 16.7 ug/dl (5.5-11.0)
[2018-01-29] MEDS: Multivitamin With Minerals Tab PO SCH (09:00)
--- NOTE | 2018-01-29 11:03 | CARD ---
APPROVED REPORT EKG Measurement Heart [id number] <Conclusion> Sinus bradycardia Otherwise normal ECG
--- NOTE | 2018-01-29 11:24 | PCM.PSYCH ---
Initial Psychiatric Evaluation - Initial Psychiatric Evaluation Type of Admission: Voluntary Legal Status: Capacity Chief Complaint (in patient's own words): I am tired Patient's Reaction to Hospitalization: pt requested help History of Present Illness and Precipitating Events: pt with previous diagnosis of polysubstance use and depression, non compliant with medications or follow up pt presented to ER seeking help for depression with suicidal ideation and non command auditory hallucinations, pt has been homeless for past three years, relapsed on drugs became increasingly depressed with poor sleep and poor appetite, became hopeless and helpless and on day of evaluation started experiencing suicidal ideations, pt on unit passively suicidal denied any active plan or intent, denied homicidal ideations, denied command hallucinations urine toxicology positive for cocaine , opiates and cannabis Current Medications: Active Medications Generic Name Dose Route Start Last Admin Trade Name Freq PRN Reason Stop Dose Admin Acetaminophen 650 mg 01/28/18 22:13 Tylenol 325mg Tab PO Q4 PRN Pain, moderate (4-7) Al Hydrox/Mg Hydrox/Simethicone 30 ml 01/28/18 22:13 Maalox Plus 30 Ml PO Q4 PRN Dyspepsia Clonidine HCl 0.1 mg 01/29/18 01:00 01/29/18 01:03 Catapres PO 02/01/18 01:01 Not Given Q8 ANNETTE Diphenhydramine HCl 50 mg 01/28/18 22:13 Benadryl IM Q6 PRN Extrapyramidal S/S Unable PO Diphenhydramine HCl 50 mg 01/28/18 22:13 Benadryl PO Q6 PRN Extrapyramidal Symptoms Haloperidol 5 mg 01/28/18 22:13 Haldol PO Q4 PRN Agitation Haloperidol Lactate 5 mg 01/28/18 22:13 Haldol IM Q4 PRN Agitation, Unable to Take PO Ibuprofen 800 mg 01/28/18 22:54 Motrin Tab PO 01/31/18 22:55 Q6 PRN Pain, severe (8-10) Loperamide HCl 2 mg 01/28/18 22:54 Imodium PO 01/31/18 22:55 QID PRN after each loose bowel movemen Lorazepam 2 mg 01/28/18 22:13 Ativan IM Q4 PRN Anxiety/Agitation,Unable PO Lorazepam 1 mg 01/28/18 22:54 Ativan PO Q4 PRN anxiety/agitation Magnesium Hydroxide 30 ml 01/28/18 22:13 Milk Of Magnesia PO HS PRN Constipation Mirtazapine 7.5 mg 01/29/18 22:00 Remeron PO HS ANNETTE Multivitamins/Minerals 1 tab 01/29/18 09:00 Therapeutic-M Tab PO DAILY ANNETTE Past Psychiatric History - Past Psychiatric History Explanation of prior treatment: multiple inpatient psychiatric hospitalizations, hx of non compliance History of ETOH/Drug Use: hx of cocaine, opiate and cannabis use Pertinent Medical Hx (Current Medical&Sleep Prob, Allergies): Allergies Allergy/AdvReac Type Severity Reaction Status Date / Time No Known Allergies Allergy Verified 10/23/17 23:37 Metformin Hydrochloride [Metformin] 500 mg PO BID 08/25/15 Mental Status Examination - Personal Presentation Personal Presentation: Looks older than stated age Additional comments: unkempt, disheveled - Affect Affect: Depressed - Motor Activity Motor Activity: Psychomotor Retardation - Reliability in Providing Information Reliability in Providing Information: Poor, due to alteration in thoughts, Poor , due to altered mood - Speech Speech: Irrelevant - Mood Mood: Depressed, Anxious - Formal Thought Process Formal Thought Process: Hallucinations, Circumstantial Additional comments: pt reported non command auditory hallucinations - Hallucinations/Delusions Hallucinations: Auditory Additional comments: pt reported non command auditory hallucinations - Obsessions/Compulsions Obsessions: No Compulsions: No - Cognitive Functions Orientation: Person, Place, Situation Sensorium: Alert Attention/Concentration: Easily distracted Abstract Thinking: [place] Judgement: Imparied, as evidence by: Poor judgement, Imparied, as evidence by: Lack of insight into illness - Risk Risk: Withdrawal, Diminished functioning - Strength & Assets Inventory Strength & Assets Inventory: Life experience - Limitations Additional comments: home;ess, unemployed DSM 5 DX - DSM 5 DSM 5 Diagnosis: 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
--- NOTE | 2018-01-29 18:43 | CP.PCM.CON ---
History of Present Illness - History of Present Illness History of Present Illness: 47 yo male with no significant PMH admitted to psyche unit because of Suicidal Ideation, Depression and Heroin Abuse. Review of Systems - Review of Systems All systems: reviewed and no additional remarkable complaints except (aside from those mentioned above, 12 points system review were negative by me) Past Patient History - Infectious Disease Hx of Infectious Diseases: None - Past Medical History & Family History Past Medical History?: Yes - Past Social History Smoking Status: Light Smoker < 10 Cigarettes Daily - CARDIAC Hx Cardiac Disorders: No Hx Hypertension: No - PULMONARY Hx Asthma: Yes Hx Tuberculosis: No - NEUROLOGICAL HX Cerebrovascular Accident: No Hx Seizures: Yes (Last seizure at age 11.) - HEENT Hx HEENT Problems: No - RENAL Hx Chronic Kidney Disease: No - ENDOCRINE/METABOLIC Hx Endocrine Disorders: No - HEMATOLOGICAL/ONCOLOGICAL Hx Cancer: No Hx Human Immunodeficiency Virus (HIV): No - INTEGUMENTARY Hx Dermatological Problems: No - MUSCULOSKELETAL/RHEUMATOLOGICAL Hx Musculoskeletal Disorders: No - GASTROINTESTINAL Hx Gastritis: Yes - GENITOURINARY/GYNECOLOGICAL Hx Sexually Transmitted Disorders: No - PSYCHIATRIC Hx Substance Use: Yes - SURGICAL HISTORY Hx Appendectomy: Yes - ANESTHESIA Hx Anesthesia: Yes Hx Anesthesia Reactions: No Meds Allergies/Adverse Reactions: Allergies Allergy/AdvReac Type Severity Reaction Status Date / Time No Known Allergies Allergy Verified 10/23/17 23:37 - Medications Medications: Current Medications Acetaminophen (Tylenol 325mg Tab) 650 mg PO Q4 PRN PRN Reason: Pain, moderate (4-7) Al Hydrox/Mg Hydrox/Simethicone (Maalox Plus 30 Ml) 30 ml PO Q4 PRN PRN Reason: Dyspepsia Baclofen (Lioresal) 10 mg PO TID PRN PRN Reason: Leg cramps Clonidine HCl (Catapres) 0.1 mg PO Q8 ANNETTE Stop: 02/01/18 01:01 Last Admin: 01/29/18 18:20 Dose: Not Given Diphenhydramine HCl (Benadryl) 50 mg IM Q6 PRN PRN Reason: Extrapyramidal S/S Unable PO Diphenhydramine HCl (Benadryl) 50 mg PO Q6 PRN PRN Reason: Extrapyramidal Symptoms Haloperidol (Haldol) 5 mg PO Q4 PRN PRN Reason: Agitation Haloperidol Lactate (Haldol) 5 mg IM Q4 PRN PRN Reason: Agitation, Unable to Take PO Ibuprofen (Motrin Tab) 800 mg PO Q6 PRN PRN Reason: Pain, severe (8-10) Stop: 01/31/18 22:55 Loperamide HCl (Imodium) 2 mg PO QID PRN PRN Reason: after each loose bowel movemen Stop: 01/31/18 22:55 Lorazepam (Ativan) 2 mg IM Q4 PRN PRN Reason: Anxiety/Agitation,Unable PO Lorazepam (Ativan) 1 mg PO Q4 PRN PRN Reason: anxiety/agitation Magnesium Hydroxide (Milk Of Magnesia) 30 ml PO HS PRN PRN Reason: Constipation Mirtazapine (Remeron) 7.5 mg PO HS ANNETTE Multivitamins/Minerals (Therapeutic-M Tab) 1 tab PO DAILY ANNETTE Physical Exam - Constitutional Appears: No Acute Distress - Head Exam Head Exam: ATRAUMATIC - Eye Exam Eye Exam: absent: Scleral icterus - ENT Exam ENT Exam: Mucous Membranes Moist - Neck Exam Neck exam: Negative for: Meningismus - Respiratory Exam Respiratory Exam: absent: Rales, Rhonchi, Wheezes, Respiratory Distress - Cardiovascular Exam Cardiovascular Exam: REGULAR RHYTHM, +S1, +S2 - GI/Abdominal Exam GI & Abdominal Exam: Soft. absent: Tenderness - Rectal Exam Rectal Exam: Deferred - Neurological Exam Neurological exam: Alert, Oriented x3 - Psychiatric Exam Psychiatric exam: Normal Affect - Skin Skin Exam: Dry, Intact Results - Vital Signs Recent Vital Signs: Last Vital Signs Temp 98.4 F 01/29/18 17:00 Pulse 55 L 01/29/18 18:20 Resp 18 01/29/18 17:00 BP 124/59 L 01/29/18 18:20 Pulse Ox 97 01/28/18 20:01 - Labs Result Diagrams: 01/28/18 15:27 01/28/18 15:27 Labs: Laboratory Results - last 24 hr 01/29/18 01/29/18 01/29/18 06:40 06:40 06:40 Hemoglobin A1c 5.6 Triglycerides 91 Cholesterol 146 LDL Cholesterol Direct 72 HDL Cholesterol 43 Thyroxine (T4) 16.7 H TSH 3rd Generation 0.11 L RPR Nonreactive Assessment & Plan (1) Depression Status: Acute Comment: psyche is managing
[2018-01-30] MEDS: Multivitamin With Minerals Tab PO SCH (09:00)
--- NOTE | 2018-01-30 12:50 | PCM.PYCHPN ---
Psychiatric Progress Note - Psychiatric Progress Note Patient seen today, length of contact: pt evaluated discussed with team chart reviewed Patient Chief Complaint: I am going through withdrawals Problems Identified/Issues Discussed: pt seen in bed, low energy, anhedonia, pt continues to experience withdrawal from opiates, depressed mood and affect unable to participate in groups, , pt continues to feel hopeless and helpless, denied active suicidal or homicidal ideations, denied command hallucinations Medical Problems: multiple inpatient psychiatric hospitalizations, hx of non compliance DSM 5 Symptoms Update: 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 cocaine use disorder cannabis use disorder opiate use disorder Medication Change: No Medical Record Reviewed: Yes Mental Status Examination - Cognitive Function Orientation: Person, Place, Situation Attention: Poor Concentration: Poor Association: WNL Fund of Knowledge: Poor Decription of patient's judgement and insights: impaired insight, poor judgment - Mood Mood: Depressed, Anxious - Affect Affect: Constricted, Depressed - Speech Speech: Soft - Formal Thought Process Formal Thought Process: Circumstantial Psychotic Thoughts and Behaviors: pt denied any current perceptual disturbances - Suicidal Ideation Suicidal Ideation: No - Homicidal Ideation Homicidal Ideation: No Goal/Treatment Plan - Goal/Treatment Plan Need for Continued Stay: Severe depression anxiety, Discharge may exacerbated symptoms Progress Toward Problem(s) and Goals/Treatment Plan: clonidine protocol and monitor pt for symptoms and signs of opiate withdrawal baclofen /10mg tid prn remeron 7.5mg qhs for depression neurontin 100mg tid motivational and group therapy
--- NOTE | 2018-01-30 15:09 | PCM.BM ---
<Tami Neil - Last Filed: 01/30/18 15:07> Treatment assets and liabiliti Patient Assests: resourceful, self-reliant, ADL independent, physically healthy , negotiates basic needs, cognitively intact Patient Liabilities: financial problems, poor support system, substance abuse, legal issue (hx of arrests), other (homelessness) - Milieu Protocol Milieu Narrative: clonidine protocol and monitor pt for symptoms and signs of opiate withdrawal baclofen /10mg tid prn remeron 7.5mg qhs for depression neurontin 100mg tid motivational and group therapy Family Contact Family involvement: Famliy/SO not involved Family contact: Patient declines to allow family contact at present - Goals for Treatment Patient goals for treatment: Patient to continue stabilization on 3NP through medication management and group/supportive therapy. Patient to be encouraged to attend groups regularly to promote self-awareness, sobriety, and improve insight , coping skills and self-esteem. Patient to be provided with referral for appropriate level of aftercare to reduce risk of future hospitalizations and ensure safety in the community. Discharge/Continuing Care - Education Needs Education Needs: Patient Medication, Patient Coping Skills, Patient Community resources, Patient Aftercare Safety Plan - Discharge Discharge Criteria: Tolerates medication w/o severe side effects, Free of Suicidal thoughts, Normal sleep pattern, Ability to care for self, No longer exhibiting s/s of withdrawal Discharge to:: Prison, Other ([facility] vs[facility]) - Treatment Team Participation Patient/Family/SO Statement: clonidine protocol and monitor pt for symptoms and signs of opiate withdrawal baclofen /10mg tid prn remeron 7.5mg qhs for depression neurontin 100mg tid motivational and group therapy <Woo Duarte - Last Filed: 01/31/18 11:50> Discharge/Continuing Care - Additional Comments 01/31/18 11:28 Pt reported he was still experiencing withdrawal symptoms. Pt appeared to be sweating and in physical discomfort during treatment team. Pt discussed that he would like to be referred to residential rehab. - Treatment Team Participation Discussed with Family/SO: No Was Patient/Family/SO present at Treatment Team Meeting: Yes
[2018-01-31] MEDS: Multivitamin With Minerals Tab PO SCH (09:23)
--- NOTE | 2018-01-31 13:06 | PCM.PYCHPN ---
Psychiatric Progress Note - Psychiatric Progress Note Patient seen today, length of contact: pt evaluated discussed with team chart reviewed Patient Chief Complaint: I am having hard time with the withdrawals Problems Identified/Issues Discussed: pt seen with treatment team, presenting with depressed mood and affect low energy, anhedonia, pt continues to experience withdrawal from opiates, depressed mood and affect unable to participate in groups, ,reported non command auditory hallucinations putting him down pt continues to feel hopeless and helpless, denied active suicidal or homicidal ideations, discussed with pt joining inpatient rehab on discharge pt agreed Medical Problems: multiple inpatient psychiatric hospitalizations, hx of non compliance DSM 5 Symptoms Update: 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 cocaine use disorder opiate use disorder Medication Change: Yes (start risperidone) Medical Record Reviewed: Yes Mental Status Examination - Cognitive Function Orientation: Person, Place, Situation Attention: WNL Concentration: WNL Association: WNL Fund of Knowledge: Poor Decription of patient's judgement and insights: impaired insight, poor judgment - Mood Mood: Depressed, Anxious - Affect Affect: Constricted, Depressed - Speech Speech: Soft - Formal Thought Process Formal Thought Process: Circumstantial Psychotic Thoughts and Behaviors: pt denied any current perceptual disturbances - Suicidal Ideation Suicidal Ideation: No - Homicidal Ideation Homicidal Ideation: No Goal/Treatment Plan - Goal/Treatment Plan Need for Continued Stay: Severe depression anxiety, Discharge may exacerbated symptoms Progress Toward Problem(s) and Goals/Treatment Plan: clonidine 0.1mg q8 prn for symptoms and signs of opiate withdrawal baclofen /10mg tid prn remeron 15mg qhs for depression neurontin 100mg tid prn for anxiety risperidone 0.5mg bid for auditory hallucinations motivational and group therapy Estimated Date of D/C: 02/04/18
[2018-01-31] MEDS: Risperidone M tab 0.5MG PO SCH (18:00)
[2018-02-01] MEDS: Risperidone M tab 0.5MG PO SCH ×2 (09:02→17:40)
[2018-02-01] MEDS: Multivitamin With Minerals Tab PO SCH (09:02)
--- NOTE | 2018-02-01 16:03 | PCM.PYCHPN ---
Psychiatric Progress Note - Psychiatric Progress Note Patient seen today, length of contact: pt evaluated discussed with team chart reviewed Patient Chief Complaint: signed a 48 hour notice was feeling nervous now feeling less but then asks for sleeping aid Problems Identified/Issues Discussed: alteration in mood alteration in sleep Medical Problems: per chart Diagnostic Results: per psychiatry per medicine per nursing per social work DSM 5 Symptoms Update: alteration in mood and sleep Medication Change: Yes (trazodone 100mg po hs prn insomnia) Medical Record Reviewed: Yes Consults ordered or reviewed: pt seen by hospitalist Mental Status Examination - Cognitive Function Orientation: Person, Place, Situation Attention: WNL Concentration: WNL Association: WNL Fund of Knowledge: Poor Decription of patient's judgement and insights: impaired - Mood Mood: Depressed, Anxious - Affect Affect: Constricted, Depressed - Speech Speech: Soft - Formal Thought Process Formal Thought Process: Circumstantial - Suicidal Ideation Suicidal Ideation: No - Homicidal Ideation Homicidal Ideation: No Goal/Treatment Plan - Goal/Treatment Plan Need for Continued Stay: Severe depression anxiety, Discharge may exacerbated symptoms Progress Toward Problem(s) and Goals/Treatment Plan: inpt milieu vital signs and clinical assessment per protocol and per status trazodone 100mg po hs sleep review with pt 48 hour notice-48hours to assess and deem clinical status of patient if concerns for safety [facility] screeners may be called and obtain screening for possible involuntary admission pt verbally agreeable to remain EXPRESSEDLY MADE CLEAR THAT NO GUARANTEE WAS GRANTED RELATED TO BEING DISCHARGED IN AM OR SATURDAY DISCHARGE PLANNING IN PROGRESS endocrine consult abnormal thyroid studies Estimated Date of D/C: 02/04/18 - Smoking Cessation Smoking Cessation Initiated: No Reason for not providing: pt defers
--- NOTE | 2018-02-02 01:04 | CON ---
ENDOCRINOLOGY CONSULT DATE: LOCATION: In room 315, Psychiatry. HISTORY OF PRESENT ILLNESS: This is a 47-year-old male with polysubstance abuse and admitted here with major depression and associated auditory hallucinations and is being referred now for endocrine evaluation because of abnormal thyroid function studies. PAST MEDICAL HISTORY: As mentioned above, history of generalized anxiety and depression with underlying chronic schizoaffective disorder; history of lumbar disk disease and also a previous ulnar fracture in the past; history of type 2 diabetes, currently on metformin therapy, which he has discontinued at this time; history of hypertension and dyslipidemia, history of generalized seizure disorder of longstanding nature since he was age 11 as noted. FAMILY HISTORY: Positive for hypertension and heart disease. No known thyroid endocrinopathy. SOCIAL HISTORY: The patient is homeless and admits to polysubstance abuse with the use of heroin and cocaine and nicotine dependence and also has chronic alcoholism as noted. He has actually at this time homeless and used to go to a homeless senior care some months ago as noted. REVIEW OF SYSTEMS: Admits to generalized body weakness with easy fatigability and tiredness and suboptimal energy level. Also admits to episodic chest pains or palpitations with marked insomnia. His oral intake is variable with nausea, dyspepsia, and hyperdefecation. PHYSICAL EXAMINATION: GENERAL: This is an average built male in no apparent distress. VITAL SIGNS: Blood pressure of 140/90, pulse of 100 beats per minute and regular, temperature 98, respirations 20, height is 5 feet 4 inches, and weight is 160 pounds. HEENT: Head is normocephalic. Eyes; anicteric with pink conjunctivae. Funduscopy not possible at this time. Ears, nose, and throat otherwise normal. NECK: Supple. Thyroid gland shows nodular thyromegaly with no overt nodules or cysts noted. HEART: Hyperdynamic precordium. S1 and S2 is rapid and regular. LUNGS: Clear to auscultation. ABDOMEN: Flat and soft with positive bowel sounds. EXTREMITIES: No peripheral edema. Pulses are +2 bilaterally. LABORATORY DATA: His total T4 or thyroxine level is 16.7 with a TSH of 0.11. His chemistries; BUN is 12, sodium 146, potassium 3.9, chloride 106, CO2 of 30, glucose 98, and creatinine 0.7. His hemoglobin A1c is 5.6. ASSESSMENT AND PLAN: This is a 47-year-old male with known history of type 2 diabetes, hypertension, and has been currently off medications at this time, presenting here with major depressive disorder and auditory hallucinations and behavioral changes and has been also evaluated to have overt hyperthyroidism both historically, clinically, and biochemically most likely related to underlying autoimmune thyroiditis and/or Graves disease. He also has concomitant diffuse toxic goiter with no overt compressive or obstructive manifestations. Plan of management as discussed with the patient and staff. We will start him on a low-dose medical therapy with Tapazole given as 5 mg p.o. t.i.d. after meals to start today. We will obtain serial chemistries and supplement accordingly as needed. We will obtain a comprehensive thyroid hormonal profile to include the thyroid stimulating immunoglobulin, which will confirm and/or indicate the presence of underlying thyroid autoimmunity. We will obtain serial chemistries and supplement accordingly as needed. We will follow. Karli Valdes MD
[2018-02-02 08:06] VITALS: BP 131/77; PULSE 59; TEMP 97.2
[2018-02-02 08:13] LABS: ALB/GLOB RATIO 1.1 (1.0-2.1); ALBUMIN 4.1 g/dL (3.5-5.0); ALT/SGPT 59 U/L (21-72); AST/SGOT 42 U/L (17-59); BLOOD UREA NITROGEN 12 mg/dl (9-20); CALCIUM 9.8 mg/dL (8.4-10.2); GFR AFRICAN-AMERICAN > 60; GFR NON-AFRICAN AMERICAN > 60
[2018-02-02 08:19] LABS: T4 15.8 ug/dl (5.5-11.0)
[2018-02-02] MEDS: Multivitamin With Minerals Tab PO SCH (09:58)
[2018-02-02] MEDS: Risperidone M tab 0.5MG PO SCH ×2 (09:58→17:06)
[2018-02-02] MEDS: methIMAzole 5 MG TAB PO SCH ×3 (09:58→16:49)
--- NOTE | 2018-02-02 16:36 | PCM.PYCHDC ---
Mental Status Examination - Mental Status Examination Orientation: Person, Place, Situation, Time Memory: Intact Mood: Neutral Affect: Broad Speech: Appropriate Attention: WNL Concentration: WNL Association: WNL Fund of Knowledge: WNL Formal Thought Process: No Impairment Description of patient's judgement and insight: improved verbalizes understanding what 48 hour notice signifies, although continues to wish to be discharged verbalizes is agreeable to calling unit for a discharge plan in am and or present to [facility] ([facility] ), reports will stay with son who lives approx. 3 blocks away, verbally agreeable to have staff call son to confirm domicile, verbalizes understanding that substance use continues to be part of and or affect his mental health, + teach back noted related to triggers, relapse etc Suicidal Ideation: No Current Homicidal Ideation?: No Discharge Summary - Discharge Note Reason for Hospitalization: presented to [facility] complain of suicidal ideations within the context of substance use. briefly on unit participating in milieu therapy and although at times was loud when speaking about status and discharge responded to de escalation. was started on medications and standard prns. pt was seen by hospitalist as well as endocrinology and was diagnosed as having toxic goiter and started on tapazole. pt was informed of such and need to follow up with primary care and continue rx. positive teach back noted related to not abruptly stopping. pt verbalizes understanding that not following up can have adverse side effects including . pt. was given printed information related to hyperthyroidism and prescriptions were given for two weeks to facilitate a bridge for follow up care. pt was not suicidal/homicidal and was denying psychosis. pt did not appear to meet criteria for screening for involuntary commitment. pt. deferred remaining until 02/03/18 to meet with team and to receive assistance with discharge plan. Psychiatric History (includes Medical, Family, Personal Hx): previous admissions changes in mood, substance use/suicidal ideations Laboratory Data: Abnormal Lab Results 02/02/18 02/02/18 07:00 07:00 Sodium 145 Potassium 4.4 Chloride 104 Carbon Dioxide 28 Anion Gap 17 BUN 12 Creatinine 0.8 Est GFR ( Amer) > 60 Est GFR (Non-Af Amer) > 60 Random Glucose 98 Calcium 9.8 Total Bilirubin 0.7 AST 42 ALT 59 Alkaline Phosphatase 48 Total Protein 7.9 Albumin 4.1 Globulin 3.8 Albumin/Globulin Ratio 1.1 Free T4 1.40 Thyroxine (T4) 15.8 H TSH 3rd Generation 0.34 L Consultations:: List each consultation separately and include: 1. Reason for request. 2. Findings. 3. Follow-up Consultations: pt seen by hospitalist dr. doss endocrine Summary of Hospital Course include:: 1. Description of specific treatment plan utilized for patients during their course of treatmen. 2. Summarize the time- course for resolution of acute symptoms and/or regressed behaviors. 3. Describe issues identified and worked on during hospitalization. 4. Describe medication utilized. 5. Describe medical problems identified and treated. 6. Reassessment of suicide risk Summary of Hospital Course: presented to [facility] complain of suicidal ideations within the context of substance use. briefly on unit participating in milieu therapy and although at times was loud when speaking about status and discharge responded to de escalation. was started on medications and standard prns. pt was seen by hospitalist as well as endocrinology and was diagnosed as having toxic goiter and started on tapazole. pt was informed of such and need to follow up with primary care and continue rx. positive teach back noted related to not abruptly stopping. pt verbalizes understanding that not following up can have adverse side effects including . pt. was given printed information related to hyperthyroidism and prescriptions were given for two weeks to facilitate a bridge for follow up care. pt was not suicidal/homicidal and was denying psychosis. pt did not appear to meet criteria for screening for involuntary commitment. pt. deferred remaining until 02/03/18 to meet with team and to receive assistance with discharge plan. 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 denies ill will towards others. - Final Diagnosis (DSM 5) Condition upon Discharge: FAIR DSM 5: major depressive disorder moderate to severe Bipolar I Substance use :opiate active Mood disorder 2nd to general medical condition: hyperthyroidism Substance induced mood disorder Disposition: HOME/ ROUTINE Follow-up Treatment Plan: pt. to be discharged per attending physician pt signed a 48 hour notice did not meet screening criteria pt received both verbal and written information related to hyperthyroidism tapazole 5mg po tid #45 no refills mvi 1 tab po daily #15 no refills mirtazepine 15mg po hs #15 no refills risperdal mtab 0.5 mg po bid #30 no refills pt was given prescriptions for two weeks to decrease likelihood of not following up and not having tapazole pt was given information for [facility]. crisis plan [id number] Prescriptions/Medication Reconciliation: methIMAzole [Tapazole] 5 mg PO TID 14 Days #45 tab Mirtazapine [Remeron] 15 mg PO HS 14 Days #15 tab Multimineral/Multivitamin [Therapeutic-M Tab] 1 tab PO DAILY 14 Days #14 tab Risperidone [Risperdal M-TAB] 0.5 mg PO BID 14 Days #30 odt - Smoking Cessation Smoking Cessation Medication prescribed: No Reason for not providing: pt defers - Antipsychotic Medications Pt discharged on 2 or more routine antipsychotic medications: No - Justification for 2 or more meds Augmentation of Clozapine: Yes
--- NOTE | 2018-02-03 12:33 | PN ---
DATE: 02/02/2018 ENDOCRINOLOGY FOLLOWUP NOTE LOCATION: Room number 315. SUBJECTIVE: This is a 47-year-old male with major depressive disorder on the background of mild polysubstance abuse and is being followed closely now for metabolic management. His repeat thyroid studies showed a T4 of 15.8 which is improved and a TSH of 0.34 and a free T4 of 1.40. LABORATORY DATA: His latest chemistry showed a BUN of 12, sodium of 145, potassium of 4.4, chloride of 104, CO2 of 28, glucose of 98 and creatinine of 0.8. ASSESSMENT AND PLAN: So at this time, we will continue the modified Tapazole given as 5 mg p.o. t.i.d. after meals as ordered. We will titrate incrementally to optimize metabolic control. We will follow. Karli Valdes MD
== END 2018-02-02 18:00 | disposition home or self-care (01) | DRG 430 ==
LOC: H.ER 11:35 → H.PSYCH 17:30 → H.ERHOLD 17:51 → H.PSYCH 22:08
PROVIDERS: ADMIT Psychiatry & Neurology Psychiatry; ATTEND Psychiatry & Neurology Psychiatry
PROC: GZHZZZZ Group Psychotherapy (ICD-10-PCS; principal; 2018-01-30)
PROC: GZ51ZZZ Individual Psychotherapy, Behavioral (ICD-10-PCS; 2018-01-30)
DX: F32.2 Major depressive disorder, single episode, severe without psychotic features (principal); E11.22 Type 2 diabetes mellitus with diabetic chronic kidney disease; R45.851 Suicidal ideations; G40.409 Other generalized epilepsy and epileptic syndromes, not intractable, without status epilepticus; N18.9 Chronic kidney disease, unspecified; F11.10 Opioid abuse, uncomplicated; F25.9 Schizoaffective disorder, unspecified; E78.5 Hyperlipidemia, unspecified; F41.1 Generalized anxiety disorder; I12.9 Hypertensive chronic kidney disease with stage 1 through stage 4 chronic kidney disease, or unspecified chronic kidney disease; J45.909 Unspecified asthma, uncomplicated; Z59.0 Homelessness; Z91.14 Patient's other noncompliance with medication regimen; Z91.19 Patient's noncompliance with other medical treatment and regimen; K29.70 Gastritis, unspecified, without bleeding; M51.9 Unspecified thoracic, thoracolumbar and lumbosacral intervertebral disc disorder; Z87.81 Personal history of (healed) traumatic fracture; Z79.84 Long term (current) use of oral hypoglycemic drugs; E05.00 Thyrotoxicosis with diffuse goiter without thyrotoxic crisis or storm; F10.20 Alcohol dependence, uncomplicated; F12.90 Cannabis use, unspecified, uncomplicated; F14.151 Cocaine abuse with cocaine-induced psychotic disorder with hallucinations; F17.200 Nicotine dependence, unspecified, uncomplicated

== ENCOUNTER 2018-05-28 15:45 | Emergency (ER) | payer MEDICAID ==
[2018-05-28 15:45] VITALS: BMI 29.9
[2018-05-28] MEDS ORDERED: Sodium Chloride 0.9% 1,000 ML IV STA (16:02)
--- NOTE | 2018-05-28 16:45 | ED PDOC ---
HPI: Abdomen Time Seen by Provider: 05/28/18 15:56 Chief Complaint (Nursing): Back Pain Chief Complaint (Provider): drug intoxication and abdominal pain History Per: Patient History/Exam Limitations: no limitations Onset/Duration Of Symptoms: Mins (x15 [employer]) Associated Symptoms: denies: Nausea, Vomiting Additional Complaint(s): Gui Jean is a 47 year old male, with a past medical history of asthma, back problems and gastritis, who was brought to the emergency department via EMS for drug intoxication and severe abdominal pain that started shortly after using heroin x15 min [employer]. Patient also reports he took ibuprofen for chronic back pain. He denies any nausea, vomit or other medical complaints. He denies any alcohol or other drug use. History may be unreliable due to intoxication. PMD: None provided. Past Medical History Reviewed: Historical Data, Nursing Documentation, Vital Signs Vital Signs: Last Vital Signs Temp 98.2 F 05/28/18 19:59 Pulse 86 05/28/18 19:59 Resp 18 05/28/18 19:59 BP 106/74 05/28/18 19:59 Pulse Ox 97 05/28/18 19:59 - Medical History PMH: Anxiety, Asthma, Back Problems, Depression, Fractures (Ulnar Fracture), Gastritis, Seizures (Last seizure at age 11.) Denies: Diabetes, Hepatitis, HIV, HTN, Chronic Kidney Disease, Sexually Transmitted Disease - Surgical History Surgical History: Appendectomy - Family History Family History: States: Unknown Family Hx - Home Medications Home Medications: Ambulatory Orders Medication Instructions Recorded Metformin Hydrochloride [Metformin] 500 mg PO BID 08/25/15 Mirtazapine [Remeron] 15 mg PO HS 14 Days #15 tab 02/02/18 Multimineral/Multivitamin 1 tab PO DAILY 14 Days #14 tab 02/02/18 [Therapeutic-M Tab] Risperidone [Risperdal M-TAB] 0.5 mg PO BID 14 Days #30 odt 02/02/18 methIMAzole [Tapazole] 5 mg PO TID 14 Days #45 tab 02/02/18 - Allergies Allergies/Adverse Reactions: Allergies Allergy/AdvReac Type Severity Reaction Status Date / Time No Known Allergies Allergy Verified 05/28/18 15:46 Review of Systems ROS Statement: Except As Marked, All Systems Reviewed And Found Negative Gastrointestinal: Positive for: Abdominal Pain. Negative for: Nausea, Vomiting Musculoskeletal: Positive for: Back Pain (chronic) Neurological: Positive for: Other (heroin use) Physical Exam - Reviewed Nursing Documentation Reviewed: Yes Vital Signs Reviewed: Yes - Physical Exam Appears: Positive for: In Acute Distress Head Exam: Positive for: ATRAUMATIC, NORMAL INSPECTION, NORMOCEPHALIC Skin: Positive for: Normal Color, Warm, Dry Eye Exam: Positive for: EOMI. Negative for: PERRL (Pinpoint pupils b/l) Neck: Positive for: Painless ROM Cardiovascular/Chest: Positive for: Regular Rate, Rhythm. Negative for: Murmur Respiratory: Positive for: Normal Breath Sounds. Negative for: Respiratory Distress Gastrointestinal/Abdominal: Positive for: Tenderness (epigastric tenderness to palpation), Guarding (voluntary) Back: Positive for: Normal Inspection Extremity: Positive for: Normal ROM (upper and lower extremities). Negative for : Deformity, Swelling Neurologic/Psych: Positive for: Alert, Mood/Affect (somewhat agitated). Negative for: Motor/Sensory Deficits - Laboratory Results Result Diagrams: 05/28/18 16:02 05/28/18 16:58 - ECG O2 Sat by Pulse Oximetry: 94 (RA) Pulse Ox Interpretation: Abnormal Medical Decision Making Medical Decision Making: Time: 15:56 Initial Impression: abdominal pain, chronic back pain and opiate abuse Initial Plan: --EKG --Alcohol serum --CMP --Drug screen, urine --Lipase --Urine dipstick --EKG --CBC w/ differential --Sodium Chloride 1,000 ml IV 1,000 mls/hr --Reevaluation No emergently significant abnormalities. 1900 Pt requesting food and discharge. Stable for dc. Drug abuse resources given. ----- Scribe Attestation: Documented by Federico Cole, acting as a scribe for Jennifer Waddell MD. Provider Scribe Attestation: All medical record entries made by the Scribe were at my direction and personally dictated by me. I have reviewed the chart and agree that the record accurately reflects my personal performance of the history, physical exam, medical decision making, and the department course for this patient. I have also personally directed, reviewed, and agree with the discharge instructions and disposition. Disposition - Clinical Impression Clinical Impression: Heroin abuse Counseled Patient/Family Regarding: Studies Performed, Diagnosis - Disposition Referrals: [facility] [Outside] [facility] [Outside] Disposition: Routine/Home Disposition Time: 19:25 Condition: IMPROVED Instructions: Acute Abdomen (Belly Pain), Adult (DC), Opioid Use Disorder
[2018-05-28 16:48] LABS: BASO # 0.1 K/uL (0.0-0.2); BASO % 0.4 % (0.0-2.0); EOS % 7.6 % (0.0-4.0); HEMOGLOBIN 13.3 g/dL (12.0-18.0); LYMPH # 3.4 K/uL (1.0-4.3); LYMPH % 25.4 % (20.0-40.0); MEAN CELL VOLUME 88.3 fl (80.0-94.0); MEAN CORPUSCULAR HEMOGLOBIN 29.4 pg (27.0-31.0); MEAN CORPUSCULAR HGB CONC 33.3 g/dL (33.0-37.0); MONO # 1.4 K/uL (0.0-0.8); MONO % 10.5 % (0.0-10.0); NEUT # 7.6 K/uL (1.8-7.0); NEUT % 56.1 % (50.0-75.0); NRBC % 0.1 % (0.0-0.0); RBC 4.51 Mil/uL (4.40-5.90); RED CELL DISTRIBUTION WIDTH 13.4 % (11.5-14.5); WHITE BLOOD COUNT 13.6 K/uL (4.8-10.8)
[2018-05-28 17:24] LABS: ALB/GLOB RATIO 1.3 (1.0-2.1); ALBUMIN 4.9 g/dL (3.5-5.0); ALT/SGPT 54 U/L (21-72); AST/SGOT 94 U/L (17-59); BLOOD UREA NITROGEN 26 mg/dl (9-20); CALCIUM 9.2 mg/dL (8.4-10.2); GFR AFRICAN-AMERICAN > 60; GFR NON-AFRICAN AMERICAN 59; LIPASE 67 U/L (23-300)
[2018-05-28 20:01] VITALS: BP 106/74; PULSE 86; RESP 18; TEMP 98.2
[2018-05-28 20:23] LABS: BARBITURATES, UR NEGATIVE (NEGATIVE); BENZODIAZEPINES, UR NEGATIVE (NEGATIVE); OPIATES, UR POSITIVE (NEGATIVE); PHENCYCLIDINE, UR NEGATIVE (NEGATIVE)
[2018-05-28 23:37] VITALS: O2SAT 94
--- NOTE | 2018-05-29 15:08 | CARD ---
APPROVED REPORT Date of service: 05/28/2018 EKG Measurement Heart [id number] <Conclusion> Sinus tachycardia Otherwise normal ECG
== END 2018-05-28 20:01 | disposition home or self-care (01) ==
LOC: H.ER 15:45
DX: F11.10 Opioid abuse, uncomplicated (principal); R10.9 Unspecified abdominal pain; F32.9 Major depressive disorder, single episode, unspecified; F41.9 Anxiety disorder, unspecified; Z79.84 Long term (current) use of oral hypoglycemic drugs
CPT/HCPCS: 80053; 80320; 80324; 80345; 80346; 80349; 80353; 80358; 80361; 83690; 83992; 85025; 93005; 96360; 99284; J7030

== ENCOUNTER 2018-06-07 10:49 | Emergency (ER) | payer MEDICAID ==
[2018-06-07 10:50] VITALS: BMI 29.9
[2018-06-07 10:53] VITALS: O2SAT 97
[2018-06-07] MEDS ORDERED: Albuterol-Ipratrop 3 mg / 0.5 (3 ml) UD IH STA (11:11)
[2018-06-07] MEDS ORDERED: Sodium Chloride 0.9% 1,000 ML IV STA (11:11)
--- NOTE | 2018-06-07 11:17 | ED PDOC ---
HPI: Psych/Substance Abuse Time Seen by Provider: 06/07/18 11:05 Chief Complaint (Nursing): Substance Abuse Chief Complaint (Provider): Aggressive History Per: Patient History/Exam Limitations: no limitations Onset/Duration Of Symptoms: Days (today) Additional Complaint(s): Pt. aggressive on the street as seen by PCP. Pt. denies taking anything. No chest pain, weakness, headaches, dizziness, leg pain. No back pain. No abd pain. States he has dyspnea off and on. Past Medical History Reviewed: Nursing Documentation, Vital Signs Vital Signs: Last Vital Signs Temp 98.8 F 06/07/18 10:52 Pulse 133 H 06/07/18 10:52 Resp 18 06/07/18 10:52 BP 119/85 06/07/18 10:52 Pulse Ox 97 06/07/18 10:52 - Medical History PMH: Anxiety, Asthma, Back Problems, Depression, Fractures (Ulnar Fracture), Gastritis, Seizures (Last seizure at age 11.) Denies: Diabetes, Hepatitis, HIV, HTN, Chronic Kidney Disease, Sexually Transmitted Disease - Surgical History Surgical History: Appendectomy - Family History Family History: States: Unknown Family Hx - Home Medications Home Medications: Ambulatory Orders Medication Instructions Recorded Metformin Hydrochloride [Metformin] 500 mg PO BID 08/25/15 Mirtazapine [Remeron] 15 mg PO HS 14 Days #15 tab 02/02/18 Multimineral/Multivitamin 1 tab PO DAILY 14 Days #14 tab 02/02/18 [Therapeutic-M Tab] Risperidone [Risperdal M-TAB] 0.5 mg PO BID 14 Days #30 odt 02/02/18 methIMAzole [Tapazole] 5 mg PO TID 14 Days #45 tab 02/02/18 - Allergies Allergies/Adverse Reactions: Allergies Allergy/AdvReac Type Severity Reaction Status Date / Time No Known Allergies Allergy Verified 05/28/18 15:46 Review of Systems ROS Statement: Except As Marked, All Systems Reviewed And Found Negative Respiratory: Positive for: Shortness of Breath Physical Exam - Reviewed Nursing Documentation Reviewed: Yes Vital Signs Reviewed: Yes - Physical Exam Appears: Positive for: Non-toxic, No Acute Distress Head Exam: Positive for: ATRAUMATIC, NORMAL INSPECTION, NORMOCEPHALIC Skin: Positive for: Normal Color, Warm, DRY Eye Exam: Positive for: EOMI, Normal appearance, PERRL ENT: Positive for: Normal ENT Inspection Neck: Positive for: Normal, Painless ROM Cardiovascular/Chest: Positive for: Regular Rate, Rhythm Respiratory: Positive for: CNT, Normal Breath Sounds Gastrointestinal/Abdominal: Positive for: Normal Exam, Soft. Negative for: Tenderness Back: Positive for: Normal Inspection. Negative for: L CVA Tenderness, R CVA Tenderness Extremity: Positive for: Normal ROM. Negative for: Tenderness, Pedal Edema Neurologic/Psych: Positive for: Alert, Oriented. Negative for: Motor/Sensory Deficits - Laboratory Results Result Diagrams: 06/07/18 11:30 06/07/18 11:30 - ECG O2 Sat by Pulse Oximetry: 97 - Progress ED Course And Treament: 1120: Well known to the ER. Multiple visits for similar. Will give duoneb as he states it helps even though lungs cta. Will given ativan. 1441: Stable. Pending more cooperative behavior. WBC elevated, likely acute phase from agitation. Dr. Serrano to take over care. FU UDS. Disposition - Clinical Impression Clinical Impression: Homelessness - Patient ED Disposition Is Patient to be Admitted: Transfer of Care - Disposition Disposition: Transfer of Care Disposition Time: 14:42 Condition: STABLE Patient Signed Over To: Nilsa Serrano
[2018-06-07] MEDS ORDERED: Albuterol-Ipratrop 3 mg / 0.5 (3 ml) UD ONE (11:18)
[2018-06-07 11:48] LABS: BASO # 0.1 K/uL (0.0-0.2); BASO % 0.4 % (0.0-2.0); EOS # 1.3 K/uL (0.0-0.7); EOS % 7.2 % (0.0-4.0); HEMOGLOBIN 12.7 g/dL (12.0-18.0); LYMPH # 3.2 K/uL (1.0-4.3); LYMPH % 18.3 % (20.0-40.0); MEAN CORPUSCULAR HEMOGLOBIN 29.8 pg (27.0-31.0); MEAN CORPUSCULAR HGB CONC 33.5 g/dL (33.0-37.0); MEAN PLATELET VOLUME 8.2 fl (7.2-11.7); MONO # 1.6 K/uL (0.0-0.8); MONO % 9.1 % (0.0-10.0); NEUT # 11.5 K/uL (1.8-7.0); RBC 4.27 Mil/uL (4.40-5.90); RED CELL DISTRIBUTION WIDTH 13.4 % (11.5-14.5); WHITE BLOOD COUNT 17.7 K/uL (4.8-10.8)
[2018-06-07 12:14] LABS: ALB/GLOB RATIO 1.3 (1.0-2.1); ALBUMIN 4.5 g/dL (3.5-5.0); ALT/SGPT 37 U/L (21-72); AST/SGOT 47 U/L (17-59); BLOOD UREA NITROGEN 12 mg/dl (9-20); CALCIUM 9.4 mg/dL (8.4-10.2); GFR NON-AFRICAN AMERICAN > 60
--- NOTE | 2018-06-07 15:08 | ED PDOC ---
- Laboratory Results Result Diagrams: 06/07/18 11:30 06/07/18 11:30 - ECG O2 Sat by Pulse Oximetry: 97 Medical Decision Making Medical Decision Makin:30 Pt ate full meal, AAOX3, steady gait. Disposition - Clinical Impression Clinical Impression: Polysubstance abuse - POA Present On Arrival: None - Disposition Referrals: [facility] [Outside] Disposition: Routine/Home Disposition Time: 18:30 Condition: IMPROVED Instructions: Polysubstance Abuse Forms: [facility] (Mosotho) Addendum Addendum: 06/07/18 15:[address] Pt [address] out [address] Snaford pending sobriety.
[2018-06-07 15:46] LABS: BARBITURATES, UR NEGATIVE (NEGATIVE)
[2018-06-07 15:48] LABS: BENZODIAZEPINES, UR NEGATIVE (NEGATIVE); OPIATES, UR POSITIVE (NEGATIVE); PHENCYCLIDINE, UR NEGATIVE (NEGATIVE)
--- NOTE | 2018-06-07 16:35 | CARD ---
APPROVED REPORT Date of service: 06/07/2018 EKG Measurement Heart [id number] IN [id number] <Conclusion> Sinus tachycardia Otherwise normal ECG
[2018-06-07 18:20] VITALS: TEMP 97.6
[2018-06-07 19:06] VITALS: BP 113/70; PULSE 80; RESP 16
== END 2018-06-07 19:06 | disposition home or self-care (01) ==
LOC: H.ER 10:49
DX: F19.10 Other psychoactive substance abuse, uncomplicated (principal); Z71.89 Other specified counseling; Z86.59 Personal history of other mental and behavioral disorders; J45.909 Unspecified asthma, uncomplicated; Z79.84 Long term (current) use of oral hypoglycemic drugs; Z59.0 Homelessness
CPT/HCPCS: 80053; 80320; 80324; 80345; 80346; 80349; 80353; 80358; 80361; 82948; 83992; 84484; 85025; 93005; 96374; 99283; J2060; J7030

== ENCOUNTER 2018-06-12 00:33 | Emergency (ER) | payer MEDICAID ==
[2018-06-12 00:34] VITALS: BMI 29.9
[2018-06-12 00:46] VITALS: RESP 16; O2SAT 98
--- NOTE | 2018-06-12 00:59 | ED PDOC ---
HPI: General Adult Time Seen by Provider: 06/12/18 00:43 Chief Complaint (Nursing): Medical Clearance Chief Complaint (Provider): Medical Clearance History Per: Patient, Other (police) History/Exam Limitations: no limitations Onset/Duration Of Symptoms: Hrs Additional Complaint(s): Gui Jean is a 47 year old male with a past medical history of diabetes, anxiety, and depression who is well known to the ED and provider for multiple visits related to substance abuse and today is here, under police custody, for medical and psychiatric evaluation prior to incarceration. Patient has no medial complaints when evaluated by provider but does report that he hurt his wrist to the nurse. He offers no other medical complaint at this time. PMD: none provided Past Medical History Reviewed: Historical Data, Nursing Documentation, Vital Signs Vital Signs: Last Vital Signs Temp 98.7 F 06/12/18 00:42 Pulse 59 L 06/12/18 00:42 Resp 16 06/12/18 00:42 BP 131/84 06/12/18 00:42 Pulse Ox 98 06/12/18 01:01 - Medical History PMH: Anxiety, Asthma, Back Problems, Depression, Fractures (Ulnar Fracture), Gastritis, Seizures (Last seizure at age 11.) Denies: Diabetes, Hepatitis, HIV, HTN, Chronic Kidney Disease, Sexually Transmitted Disease - Surgical History Surgical History: Appendectomy - Family History Family History: States: Unknown Family Hx - Social History Current smoker - smoking cessation education provided: Yes Alcohol: > 2 Drinks/Day Drugs: Cocaine, Opiates - Home Medications Home Medications: Ambulatory Orders Medication Instructions Recorded Metformin Hydrochloride [Metformin] 500 mg PO BID 08/25/15 Mirtazapine [Remeron] 15 mg PO HS 14 Days #15 tab 02/02/18 Multimineral/Multivitamin 1 tab PO DAILY 14 Days #14 tab 02/02/18 [Therapeutic-M Tab] Risperidone [Risperdal M-TAB] 0.5 mg PO BID 14 Days #30 odt 02/02/18 methIMAzole [Tapazole] 5 mg PO TID 14 Days #45 tab 02/02/18 - Allergies Allergies/Adverse Reactions: Allergies Allergy/AdvReac Type Severity Reaction Status Date / Time No Known Allergies Allergy Verified 05/28/18 15:46 Review of Systems ROS Statement: Except As Marked, All Systems Reviewed And Found Negative Musculoskeletal: Positive for: Hand Pain (wrist pain) Physical Exam - Reviewed Nursing Documentation Reviewed: Yes Vital Signs Reviewed: Yes - Physical Exam Appears: Positive for: Non-toxic, No Acute Distress Head Exam: Positive for: ATRAUMATIC, NORMAL INSPECTION, NORMOCEPHALIC Skin: Positive for: Normal Color, Warm, DRY Eye Exam: Positive for: EOMI, Normal appearance, PERRL ENT: Positive for: Normal ENT Inspection Neck: Positive for: Normal, Painless ROM Cardiovascular/Chest: Positive for: Regular Rate, Rhythm. Negative for: Murmur Respiratory: Positive for: Normal Breath Sounds. Negative for: Respiratory Distress Gastrointestinal/Abdominal: Positive for: Normal Exam, Soft Back: Positive for: Normal Inspection Extremity: Positive for: Normal ROM. Negative for: Deformity Neurologic/Psych: Positive for: Alert, Oriented. 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 X-ray shows no fractures or dislocations. Patient is medically and psychiatrically stable and cleared for discharge to the police department. Scribe Attestation: Documented by, Radha Villarreal acting as a scribe for Michael Nuñez MD. Provider Scribe Attestation: All medical record entries made by the Scribe were at my direction and personally dictated by me. I have reviewed the chart and agree that the record accurately reflects my personal performance of the history, physical exam, medical decision making, and the department course for this patient. I have also personally directed, reviewed, and agree with the discharge instructions and disposition. Disposition - Clinical Impression Clinical Impression: Adjustment disorder, Wrist strain - Patient ED Disposition Is Patient to be Admitted: No - Disposition Disposition: Discharged/Transfer to Law Enforcement Disposition Time: 01:18 Condition: STABLE Additional Instructions: Patient is medically and psychiatrically stable for incarceration Instructions: Adjustment Disorder, Common Wrist Injuries, General (DC) Forms: [employer] (Samoan)
[2018-06-12 01:43] VITALS: BP 122/70; PULSE 82; TEMP 98.2
--- NOTE | 2018-06-12 11:19 | RAD ---
PROCEDURE: Radiographs of the Right Forearm HISTORY: pain COMPARISON: None available. TECHNIQUE: Frontal and lateral views obtained. FINDINGS: BONES: Two tiny chip or avulsion fractures are difficult to completely exclude seen only in the frontal view at the right elbow though these may also may reflect bone islands in the proximal right ulna. No joint effusions are suggested. The remainder of the radius and ulna appear unremarkable. JOINT SPACES: No subluxation or dislocation OTHER FINDINGS: None. IMPRESSION: Tiny chip fractures are difficult to exclude at the right elbow joint, however, no joint effusions are appreciated. Further clinical correlation is advised with remainder the right radius and ulna unremarkable appearing.
== END 2018-06-12 01:42 | disposition home or self-care (01) ==
LOC: H.ER 00:33
DX: F43.22 Adjustment disorder with anxiety (principal); S63.501A Unspecified sprain of right wrist, initial encounter; Y92.89 Other specified places as the place of occurrence of the external cause; E11.9 Type 2 diabetes mellitus without complications; F17.200 Nicotine dependence, unspecified, uncomplicated; F32.9 Major depressive disorder, single episode, unspecified; J45.909 Unspecified asthma, uncomplicated; Z79.84 Long term (current) use of oral hypoglycemic drugs

== ENCOUNTER 2018-06-21 18:28 | Emergency (ER) | payer MEDICAID ==
[2018-06-21 18:28] VITALS: BMI 29.9
--- NOTE | 2018-06-21 19:47 | ED PDOC ---
HPI: Back Time Seen by Provider: 06/21/18 19:30 Chief Complaint (Nursing): Back Pain Chief Complaint (Provider): Back pain History Per: Patient History/Exam Limitations: no limitations Onset/Duration Of Symptoms: Days (years) Additional Complaint(s): Pt. with back pain left lower. No new injury. Not new pain. No numbness, tingles, weakness, abd pain, dysuria. No trouble walking. Denies drugs or etoh. Multiple ER visits. Past Medical History Reviewed: Nursing Documentation, Vital Signs Vital Signs: Last Vital Signs Temp 98.5 F 06/21/18 18:59 Pulse 90 06/21/18 18:59 Resp 24 06/21/18 18:59 BP 109/56 L 06/21/18 18:59 Pulse Ox 96 06/21/18 18:59 - Medical History PMH: Anxiety, Asthma, Back Problems, Depression, Fractures (Ulnar Fracture), Gastritis, Seizures (Last seizure at age 11.), Chronic Pain Denies: Diabetes, Hepatitis, HIV, HTN, Chronic Kidney Disease, Sexually Transmitted Disease - Surgical History Surgical History: Appendectomy - Family History Family History: States: Unknown Family Hx - Home Medications Home Medications: Ambulatory Orders Medication Instructions Recorded Metformin Hydrochloride [Metformin] 500 mg PO BID 08/25/15 Mirtazapine [Remeron] 15 mg PO HS 14 Days #15 tab 02/02/18 Multimineral/Multivitamin 1 tab PO DAILY 14 Days #14 tab 02/02/18 [Therapeutic-M Tab] Risperidone [Risperdal M-TAB] 0.5 mg PO BID 14 Days #30 odt 02/02/18 methIMAzole [Tapazole] 5 mg PO TID 14 Days #45 tab 02/02/18 Ibuprofen [Motrin] 600 mg PO TID 7 Days tab 06/21/18 - Allergies Allergies/Adverse Reactions: Allergies Allergy/AdvReac Type Severity Reaction Status Date / Time No Known Allergies Allergy Verified 05/28/18 15:46 Review of Systems Constitutional: Negative for: Weakness Cardiovascular: Negative for: Chest Pain, Edema, Light Headedness Respiratory: Negative for: Cough, Shortness of Breath Gastrointestinal: Negative for: Nausea, Vomiting, Abdominal Pain, Diarrhea Genitourinary Male: Negative for: Dysuria Musculoskeletal: Positive for: Back Pain. Negative for: Neck Pain Neurological: Negative for: Weakness, Numbness Physical Exam - Reviewed Nursing Documentation Reviewed: Yes Vital Signs Reviewed: Yes - Physical Exam Appears: Positive for: Non-toxic, No Acute Distress Head Exam: Positive for: ATRAUMATIC, NORMAL INSPECTION, NORMOCEPHALIC Neck: Positive for: Normal, Painless ROM, Supple Cardiovascular/Chest: Positive for: Regular Rate, Rhythm Respiratory: Positive for: CNT, Normal Breath Sounds Gastrointestinal/Abdominal: Positive for: Normal Exam, Soft. Negative for: Tenderness Back: Positive for: Other (mild tender left lower). Negative for: L CVA Tenderness, R CVA Tenderness, Vertebral Tenderness Extremity: Positive for: Normal ROM. Negative for: Tenderness, Pedal Edema Neurologic/Psych: Positive for: Alert, Oriented - ECG O2 Sat by Pulse Oximetry: 96 Pulse Ox Interpretation: Normal - Progress ED Course And Treament: 1951: Stable. AAOx3. Pain free. Tolerated PO. FU with pcp. Multiple ER visits for the same and other things. Ambulated with no issues. Disposition - Clinical Impression Clinical Impression: Chronic back pain - Patient ED Disposition Is Patient to be Admitted: No Counseled Patient/Family Regarding: Diagnosis, Need For Followup, Rx Given - Disposition Referrals: [facility] [Outside] - 06/23/18 Disposition: Routine/Home Disposition Time: 19:56 Condition: STABLE Prescriptions: Ibuprofen [Motrin] 600 mg PO TID 7 Days tab Instructions: Chronic Pain (DC)
[2018-06-21 20:16] VITALS: BP 141/95; PULSE 81; RESP 18; TEMP 98.1; O2SAT 99
== END 2018-06-21 20:20 | disposition home or self-care (01) ==
LOC: H.ER 18:28
DX: M54.5 Low back pain (principal); G89.29 Other chronic pain

== ENCOUNTER 2018-06-22 08:10 | Emergency (ER) | payer MEDICAID ==
[2018-06-22 08:16] VITALS: BMI 28.3
--- NOTE | 2018-06-22 09:27 | ED PDOC ---
HPI: Psych/Substance Abuse Time Seen by Provider: 06/22/18 08:35 Chief Complaint (Nursing): Substance Abuse Chief Complaint (Provider): Heroin Abuse History Per: Patient History/Exam Limitations: no limitations Suicide/Self Injury Attempted (Context): None Modifying Factor(s): Other (Heroin) Additional Complaint(s): 47 year old male with a past medical history of schizophrenia is brought into the emergency department by ambulance to be evaluated for substance abuse. Patient states that he used a bag of heroin this morning which is not new for him as he does heroin on a day to day basis. He states that he has chronic back pain and uses the heroin for pain relief. Denies chest pain, shortness of breath , headache, fevers, chills. Of note: Patient noted some difficulty breathing after using heroin. Past Medical History Vital Signs: Last Vital Signs Temp 99.1 F 06/22/18 08:14 Pulse 113 H 06/22/18 08:14 Resp 16 06/22/18 08:14 BP 133/109 H 06/22/18 08:14 Pulse Ox 92 L 06/22/18 08:14 - Medical History PMH: Anxiety, Asthma, Back Problems, Depression, Fractures (Ulnar Fracture), Gastritis, Seizures (Last seizure at age 11.), Chronic Pain Denies: Diabetes, Hepatitis, HIV, HTN, Chronic Kidney Disease, Sexually Transmitted Disease - Surgical History Surgical History: Appendectomy - Family History Family History: States: Unknown Family Hx - Home Medications Home Medications: Ambulatory Orders Medication Instructions Recorded Metformin Hydrochloride [Metformin] 500 mg PO BID 08/25/15 Mirtazapine [Remeron] 15 mg PO HS 14 Days #15 tab 02/02/18 Multimineral/Multivitamin 1 tab PO DAILY 14 Days #14 tab 02/02/18 [Therapeutic-M Tab] Risperidone [Risperdal M-TAB] 0.5 mg PO BID 14 Days #30 odt 02/02/18 methIMAzole [Tapazole] 5 mg PO TID 14 Days #45 tab 02/02/18 Ibuprofen [Motrin] 600 mg PO TID 7 Days tab 06/21/18 - Allergies Allergies/Adverse Reactions: Allergies Allergy/AdvReac Type Severity Reaction Status Date / Time No Known Allergies Allergy Verified 05/28/18 15:46 Review of Systems ROS Statement: Except As Marked, All Systems Reviewed And Found Negative Constitutional: Negative for: Fever, Chills Cardiovascular: Negative for: Chest Pain, Palpitations Respiratory: Negative for: Cough, Shortness of Breath Gastrointestinal: Negative for: Vomiting, Abdominal Pain Physical Exam - Reviewed Nursing Documentation Reviewed: Yes Vital Signs Reviewed: Yes - Physical Exam Appears: Positive for: Non-toxic, No Acute Distress Head Exam: Positive for: ATRAUMATIC, NORMAL INSPECTION, NORMOCEPHALIC Skin: Positive for: Normal Color, Warm, Dry. Negative for: Rash Eye Exam: Positive for: Normal appearance, EOMI, PERRL. Negative for: Nystagmus ENT: Positive for: Normal ENT Inspection. Negative for: Nasal Congestion, Tonsillar Exudate, Tonsillar Swelling Neck: Positive for: Normal, Painless ROM, Supple Cardiovascular/Chest: Positive for: Chest Non Tender, Tachycardia (mild tachycardia). Negative for: Gallop, Murmur Respiratory: Positive for: Normal Breath Sounds, Decreased Breath Sounds. Negative for: Rales, Rhonchi, Wheezing, Respiratory Distress Gastrointestinal/Abdominal: Positive for: Normal Exam, Bowel Sounds, Soft. Negative for: Tenderness, Mass, Guarding, Rebound Back: Positive for: Normal Inspection. Negative for: L CVA Tenderness, R CVA Tenderness, Vertebral Tenderness Extremity: Positive for: Normal ROM. Negative for: Tenderness, Calf Tenderness , Deformity, Swelling Neurologic/Psych: Positive for: Alert, Oriented, Gait - Laboratory Results Result Diagrams: 06/22/18 12:20 06/22/18 12:20 - ECG O2 Sat by Pulse Oximetry: 92 (RA) Pulse Ox Interpretation: Normal Medical Decision Making Medical Decision Makin Initial Impression 47 year old male presenting with heroin and cocaine polysubstance abuse Patient will be monitored for mental status. ----- Documented by Fabi France acting as a scribe for Dannielle Orantes MD. All medical record entries made by the Scribe were at my direction and personally dictated by me. I have reviewed the chart and agree that the record accurately reflects my personal performance of the history, physical exam, medical decision making, and the department course for this patient. I have also personally directed, reviewed, and agree with the discharge instructions and disposition. Disposition - Clinical Impression Clinical Impression: Drug abuse - Patient ED Disposition Is Patient to be Admitted: Transfer of Care - Disposition Referrals: [facility] [Outside] - 06/23/18 Disposition: Transfer of Care Disposition Time: 15:00 Condition: STABLE Additional Instructions: Return if not better in 3 days. Instructions: Drug Abuse and Drug Addiction (DC) Patient Signed Over To: Jona Snaford
[2018-06-22] MEDS ORDERED: Sodium Chloride 0.9% 1,000 ML IV STA (12:10)
[2018-06-22 12:28] LABS: BASO # 0.1 K/uL (0.0-0.2); BASO % 0.6 % (0.0-2.0); EOS # 0.5 K/uL (0.0-0.7); EOS % 4.6 % (0.0-4.0); HEMOGLOBIN 14.5 g/dL (12.0-18.0); LYMPH # 2.9 K/uL (1.0-4.3); LYMPH % 27.5 % (20.0-40.0); MEAN CELL VOLUME 87.7 fl (80.0-94.0); MEAN CORPUSCULAR HEMOGLOBIN 29.6 pg (27.0-31.0); MEAN CORPUSCULAR HGB CONC 33.7 g/dL (33.0-37.0); MEAN PLATELET VOLUME 8.7 fl (7.2-11.7); MONO # 0.9 K/uL (0.0-0.8); MONO % 8.4 % (0.0-10.0); NEUT # 6.2 K/uL (1.8-7.0); NEUT % 58.9 % (50.0-75.0); NRBC % 0.2 % (0.0-0.0); RBC 4.9 Mil/uL (4.40-5.90); RED CELL DISTRIBUTION WIDTH 13.2 % (11.5-14.5); WHITE BLOOD COUNT 10.5 K/uL (4.8-10.8)
[2018-06-22 13:02] LABS: ALB/GLOB RATIO 1.3 (1.0-2.1); ALBUMIN 4.9 g/dL (3.5-5.0); ALT/SGPT 46 U/L (21-72); AST/SGOT 79 U/L (17-59); BLOOD UREA NITROGEN 18 mg/dl (9-20); CALCIUM 9.8 mg/dL (8.4-10.2); GFR AFRICAN-AMERICAN > 60; GFR NON-AFRICAN AMERICAN 50
--- NOTE | 2018-06-22 15:44 | ED PDOC ---
- Laboratory Results Result Diagrams: 06/22/18 12:20 06/22/18 12:20 - ECG O2 Sat by Pulse Oximetry: 92 (RA) - Progress ED Course And Treament: 1541: Took over care from Dr. Katty Martinez on UDS and sobriety. 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 Multiple visits to the Er fro the same. 2100: Stable. AAOx3. Pain free. Tolerated PO. FU with pcp. Ambulated with no issues. Disposition - Clinical Impression Clinical Impression: Drug abuse - POA Present On Arrival: None - Disposition Referrals: [facility] [Outside] - 06/23/18 Disposition: Routine/Home Disposition Time: 21:11 Condition: STABLE Additional Instructions: Return if not better in 3 days. Instructions: Drug Abuse and Drug Addiction (DC)
[2018-06-22 21:19] VITALS: BP 123/80; PULSE 92; RESP 20; TEMP 97.8
[2018-06-23 07:59] VITALS: O2SAT 92
== END 2018-06-22 21:19 | disposition home or self-care (01) ==
LOC: H.ER 08:10
DX: F11.10 Opioid abuse, uncomplicated (principal); R00.0 Tachycardia, unspecified; F14.10 Cocaine abuse, uncomplicated; F20.9 Schizophrenia, unspecified; F32.9 Major depressive disorder, single episode, unspecified; F41.9 Anxiety disorder, unspecified; G89.29 Other chronic pain; Z79.84 Long term (current) use of oral hypoglycemic drugs
CPT/HCPCS: 80053; 80320; 82550; 82948; 85025; 96374; 99284; J2060; J7030

== ENCOUNTER 2018-06-28 00:13 | Emergency (ER) | payer MEDICAID ==
[2018-06-28 00:13] VITALS: BMI 28.3
[2018-06-28 00:21] VITALS: RESP 16; O2SAT 99
--- NOTE | 2018-06-28 02:06 | ED PDOC ---
HPI: Psych/Substance Abuse Time Seen by Provider: 06/28/18 00:18 Chief Complaint (Nursing): Substance Abuse Chief Complaint (Provider): Substance Abuse History Per: Patient History/Exam Limitations: no limitations Onset/Duration Of Symptoms: Days Current Symptoms Are (Timing): Still Present Additional Complaint(s): 47 y/o homeless male presents to the ED for evaluation of possible substance abuse. Patient admits to using Heroin today. In addition, patient is complaining of itching all over his body. Patient is concerned for possible bug bites. Denies fever and other complaints. PMD: No Provider Past Medical History Reviewed: Historical Data, Nursing Documentation, Vital Signs Vital Signs: Last Vital Signs Temp 98.2 F 06/28/18 00:17 Pulse 102 H 06/28/18 00:17 Resp 16 06/28/18 00:17 BP 126/60 06/28/18 00:17 Pulse Ox 99 06/28/18 00:17 - Medical History PMH: Anxiety, Asthma, Back Problems, Depression, Fractures (Ulnar Fracture), Gastritis, Seizures (Last seizure at age 11.), Chronic Pain Denies: Diabetes, Hepatitis, HIV, HTN, Chronic Kidney Disease, Sexually Transmitted Disease - Surgical History Surgical History: Appendectomy - Family History Family History: States: Unknown Family Hx - Home Medications Home Medications: Ambulatory Orders Medication Instructions Recorded Metformin Hydrochloride [Metformin] 500 mg PO BID 08/25/15 Mirtazapine [Remeron] 15 mg PO HS 14 Days #15 tab 02/02/18 Multimineral/Multivitamin 1 tab PO DAILY 14 Days #14 tab 02/02/18 [Therapeutic-M Tab] Risperidone [Risperdal M-TAB] 0.5 mg PO BID 14 Days #30 odt 02/02/18 methIMAzole [Tapazole] 5 mg PO TID 14 Days #45 tab 02/02/18 Ibuprofen [Motrin] 600 mg PO TID 7 Days tab 06/21/18 Cephalexin [Keflex] 500 mg PO BID #14 capsule 06/28/18 - Allergies Allergies/Adverse Reactions: Allergies Allergy/AdvReac Type Severity Reaction Status Date / Time No Known Allergies Allergy Verified 05/28/18 15:46 Review of Systems ROS Statement: Except As Marked, All Systems Reviewed And Found Negative Skin: Positive for: Other (Itching diffusely ) Psych: Positive for: Other (Substance Abuse) Physical Exam - Reviewed Nursing Documentation Reviewed: Yes Vital Signs Reviewed: Yes - Physical Exam Appears: Positive for: No Acute Distress (Comfortable) Skin: Positive for: Dry, Rash (Papular rash noted to the abdomen and lower back) . Negative for: Normal Color (Excoriations noted to abdomen, lower back, upper thighs and arms. ) Eye Exam: Positive for: Normal appearance, EOMI, PERRL Neck: Positive for: Normal, Painless ROM Cardiovascular/Chest: Positive for: Regular Rate, Rhythm. Negative for: Murmur Respiratory: Positive for: Normal Breath Sounds. Negative for: Wheezing Gastrointestinal/Abdominal: Positive for: Normal Exam, Soft. Negative for: Tenderness Back: Positive for: Normal Inspection. Negative for: L CVA Tenderness, R CVA Tenderness Extremity: Positive for: Normal ROM. Negative for: Deformity Neurologic/Psych: Positive for: Alert, Oriented (x3), Gait (Steady), Other ( Speech is clear). Negative for: Motor/Sensory Deficits - ECG O2 Sat by Pulse Oximetry: 99 (RA) Pulse Ox Interpretation: Normal Medical Decision Making Medical Decision Making: Time: 51 Impression: Substance abuse (chronic) and itching rash likely related to heroin abuse (chronic) Differentials include but not limited to bed bug bites and Scabies Plan: -- CXR Two Views -- Benadryl 25 mg PO Scribe Attestation: Documented by Halima Ingram acting as a scribe for Dr. Dannielle Orantes MD. Provider Scribe Attestation: All medical record entries made by the Scribe were at my direction and personally dictated by me. I have reviewed the chart and agree that the record accurately reflects my personal performance of the history, physical exam, medical decision making, and the department course for this patient. I have also personally directed, reviewed, and agree with the discharge instructions and disposition. Disposition - Clinical Impression Clinical Impression: Itching, Substance abuse - Patient ED Disposition Is Patient to be Admitted: No Doctor Will See Patient In The: Office Counseled Patient/Family Regarding: Studies Performed, Diagnosis, Need For Followup - Disposition Referrals: [facility] [Outside] Disposition: Routine/Home Disposition Time: 03:00 Condition: GOOD Additional Instructions: Take benadryl for itching. Follow up with your PCP in 2-3 days. Prescriptions: Cephalexin [Keflex] 500 mg PO BID #14 capsule Instructions: Drug Abuse and Drug Addiction (DC), Itchy Skin
[2018-06-28 06:25] VITALS: BP 122/78; PULSE 86; TEMP 98.9
--- NOTE | 2018-06-28 16:34 | RAD ---
Date of service: 06/28/2018 HISTORY: cough COMPARISON: 01/29/2028 TECHNIQUE: Chest PA and lateral FINDINGS: LUNGS: No active pulmonary disease. PLEURA: No significant pleural effusion identified. No pneumothorax apparent. CARDIOVASCULAR: Normal. OSSEOUS STRUCTURES: No significant abnormalities. VISUALIZED UPPER ABDOMEN: Normal. OTHER FINDINGS: None. IMPRESSION: No active disease.
== END 2018-06-28 03:00 | disposition home or self-care (01) ==
LOC: H.ER 00:13
DX: F11.10 Opioid abuse, uncomplicated (principal); L29.9 Pruritus, unspecified; Z86.59 Personal history of other mental and behavioral disorders; G89.29 Other chronic pain; J45.909 Unspecified asthma, uncomplicated; Z59.0 Homelessness; Z79.84 Long term (current) use of oral hypoglycemic drugs

== ENCOUNTER 2018-06-28 16:27 | Emergency (ER) | payer MEDICAID ==
[2018-06-28 16:28] VITALS: BMI 28.3
[2018-06-28 16:31] VITALS: RESP 16; TEMP 99.7
--- NOTE | 2018-06-28 16:41 | ED PDOC ---
HPI: Abdomen Time Seen by Provider: 06/28/18 16:33 Chief Complaint (Nursing): GI Problem Chief Complaint (Provider): Diarrhea History Per: Patient, EMS History/Exam Limitations: no limitations Onset/Duration Of Symptoms: Days (x1) Current Symptoms Are (Timing): Still Present Additional Complaint(s): 47-year-old male, with a past medical history of EtOH abuse, brought by EMS after police found patient lying in the street. Patient denies any injury or LOC. Patient states he doesn't feel well. He denies any nausea or vomiting, but reports 1 episode of diarrhea. Past Medical History Reviewed: Historical Data, Nursing Documentation, Vital Signs Vital Signs: Last Vital Signs Temp 99.7 F H 06/28/18 16:28 Pulse 73 06/28/18 16:28 Resp 16 06/28/18 16:28 BP 135/76 06/28/18 16:28 Pulse Ox 98 06/28/18 16:42 - Medical History PMH: Anxiety, Asthma, Back Problems, Depression, Fractures (Ulnar Fracture), Gastritis, Seizures (Last seizure at age 11.), Chronic Pain Denies: Diabetes, Hepatitis, HIV, HTN, Chronic Kidney Disease, Sexually Transmitted Disease - Surgical History Surgical History: Appendectomy - Family History Family History: States: Unknown Family Hx - Social History Alcohol: > 2 Drinks/Day - Home Medications Home Medications: Ambulatory Orders Medication Instructions Recorded Metformin Hydrochloride [Metformin] 500 mg PO BID 08/25/15 Mirtazapine [Remeron] 15 mg PO HS 14 Days #15 tab 02/02/18 Multimineral/Multivitamin 1 tab PO DAILY 14 Days #14 tab 02/02/18 [Therapeutic-M Tab] Risperidone [Risperdal M-TAB] 0.5 mg PO BID 14 Days #30 odt 02/02/18 methIMAzole [Tapazole] 5 mg PO TID 14 Days #45 tab 02/02/18 Ibuprofen [Motrin] 600 mg PO TID 7 Days tab 06/21/18 Cephalexin [Keflex] 500 mg PO BID #14 capsule 06/28/18 Loperamide [Loperamide HCl] 2 mg PO Q8 #10 cap 06/28/18 - Allergies Allergies/Adverse Reactions: Allergies Allergy/AdvReac Type Severity Reaction Status Date / Time No Known Allergies Allergy Verified 06/28/18 16:28 Review of Systems ROS Statement: Except As Marked, All Systems Reviewed And Found Negative Gastrointestinal: Positive for: Diarrhea. Negative for: Nausea, Vomiting Physical Exam - Reviewed Nursing Documentation Reviewed: Yes Vital Signs Reviewed: Yes - Physical Exam Appears: Positive for: Non-toxic, No Acute Distress Cardiovascular/Chest: Positive for: Regular Rate, Rhythm. Negative for: Murmur Respiratory: Positive for: Normal Breath Sounds. Negative for: Respiratory Distress Extremity: Positive for: Normal ROM. Negative for: Deformity Neurologic/Psych: Positive for: Alert, Oriented, Mood/Affect (sleepy, but arousable). Negative for: Motor/Sensory Deficits - ECG O2 Sat by Pulse Oximetry: 98 (RA) Pulse Ox Interpretation: Normal Medical Decision Making Medical Decision Making: Plan: -Accucheck -Alcohol serum -Reevaluation Scribe Attestation: Documented by Reza Greco, acting as a scribe for Kenyon Camara MD. Provider Scribe Attestation: All medical record entries made by the Scribe were at my direction and personally dictated by me. I have reviewed the chart and agree that the record accurately reflects my personal performance of the history, physical exam, medical decision making, and the department course for this patient. I have also personally directed, reviewed, and agree with the discharge instructions and disposition. Disposition - Clinical Impression Clinical Impression: Enteritis - Patient ED Disposition Is Patient to be Admitted: No Counseled Patient/Family Regarding: Diagnosis, Need For Followup, Rx Given - Disposition Referrals: [facility] [Outside] Disposition: Routine/Home Disposition Time: 20:50 Condition: FAIR Prescriptions: Loperamide [Loperamide HCl] 2 mg PO Q8 #10 cap Instructions: Diarrhea in Adolescents and Adults Forms: [employer] ([employer]wana)
[2018-06-28 20:59] VITALS: BP 132/82; PULSE 66; O2SAT 99
== END 2018-06-28 21:00 | disposition home or self-care (01) ==
LOC: H.ER 16:27
DX: K52.9 Noninfective gastroenteritis and colitis, unspecified (principal); J45.909 Unspecified asthma, uncomplicated; G89.29 Other chronic pain; Z86.59 Personal history of other mental and behavioral disorders

== ENCOUNTER 2018-06-30 07:00 | Inpatient (IN) | payer MEDICAID ==
[2018-06-30 07:00] VITALS: BMI 28.3
--- NOTE | 2018-06-30 08:16 | ED PDOC ---
HPI: Psych/Substance Abuse Time Seen by Provider: 06/30/18 07:48 Chief Complaint (Nursing): Psychiatric Evaluation Chief Complaint (Provider): Psychiatric Evaluation History Per: Patient History/Exam Limitations: no limitations Onset/Duration Of Symptoms: Days (x2), Other Current Symptoms Are (Timing): Still Present Additional Complaint(s): 47-year-old male, with a past medical history of schizophrenia, presenting for psychiatric evaluation. Patient states hes hearing voices telling him to kill himself. He denies any specific plan. PMD: [facility] Provider Past Medical History Reviewed: Historical Data, Nursing Documentation, Vital Signs Vital Signs: Last Vital Signs Temp 98.6 F 06/30/18 07:07 Pulse 87 06/30/18 07:07 Resp 20 06/30/18 07:07 BP 132/88 06/30/18 07:07 Pulse Ox 98 06/30/18 07:07 - Medical History PMH: Anxiety, Asthma, Back Problems, Depression, Fractures (Ulnar Fracture), Gastritis, Schizophrenia, Seizures (Last seizure at age 11.), Chronic Pain Denies: Diabetes, Hepatitis, HIV, HTN, Chronic Kidney Disease, Sexually Transmitted Disease - Surgical History Surgical History: Appendectomy - Family History Family History: States: Unknown Family Hx - Home Medications Home Medications: Ambulatory Orders Medication Instructions Recorded Metformin Hydrochloride [Metformin] 500 mg PO BID 08/25/15 Mirtazapine [Remeron] 15 mg PO HS 14 Days #15 tab 02/02/18 Multimineral/Multivitamin 1 tab PO DAILY 14 Days #14 tab 02/02/18 [Therapeutic-M Tab] Risperidone [Risperdal M-TAB] 0.5 mg PO BID 14 Days #30 odt 02/02/18 methIMAzole [Tapazole] 5 mg PO TID 14 Days #45 tab 02/02/18 Ibuprofen [Motrin] 600 mg PO TID 7 Days tab 06/21/18 Cephalexin [Keflex] 500 mg PO BID #14 capsule 06/28/18 Loperamide [Loperamide HCl] 2 mg PO Q8 #10 cap 06/28/18 - Allergies Allergies/Adverse Reactions: Allergies Allergy/AdvReac Type Severity Reaction Status Date / Time No Known Allergies Allergy Verified 06/28/18 16:28 Review of Systems ROS Statement: Except As Marked, All Systems Reviewed And Found Negative Psych: Positive for: Psychosis (hearing voices), Suicidal ideation Physical Exam - Reviewed Nursing Documentation Reviewed: Yes Vital Signs Reviewed: Yes - Physical Exam Appears: Positive for: Non-toxic, No Acute Distress Head Exam: Positive for: ATRAUMATIC, NORMAL INSPECTION, NORMOCEPHALIC Skin: Positive for: Normal Color, Warm, Dry. Negative for: Rash Eye Exam: Positive for: EOMI, Normal appearance, PERRL ENT: Positive for: Normal ENT Inspection Neck: Positive for: Normal, Painless ROM, Supple Cardiovascular/Chest: Positive for: Regular Rate, Rhythm. Negative for: Murmur Respiratory: Positive for: Normal Breath Sounds. Negative for: Respiratory Distress Gastrointestinal/Abdominal: Positive for: Normal Exam, Soft. Negative for: Tenderness Back: Positive for: Normal Inspection. Negative for: L CVA Tenderness, R CVA Tenderness, Vertebral Tenderness Extremity: Positive for: Normal ROM. Negative for: Deformity Neurologic/Psych: Positive for: Alert, Oriented. Negative for: Motor/Sensory Deficits - Laboratory Results Result Diagrams: 06/30/18 08:45 06/30/18 08:45 - ECG O2 Sat by Pulse Oximetry: 98 (RA) Pulse Ox Interpretation: Normal Medical Decision Making Medical Decision Making: Plan: -EKG -Alcohol serum -CMP -CPK -Drug screen -Urine stick -CBC -Crisis evaluation -Reevaluation Medically stable for psychiatric admission Scribe Attestation: Documented by Reza Greco, acting as a scribe for Kenyon Camara MD. Provider Scribe Attestation: All medical record entries made by the Scribe were at my direction and personally dictated by me. I have reviewed the chart and agree that the record accurately reflects my personal performance of the history, physical exam, medical decision making, and the department course for this patient. I have also personally directed, reviewed, and agree with the discharge instructions and disposition. Disposition - Clinical Impression Clinical Impression: Schizophrenia - Patient ED Disposition Is Patient to be Admitted: Yes - Disposition Disposition Time: 10:29 Condition: FAIR Forms: [employer] (Slovenian) - Pt Status Changed To: Hospital Disposition Of: Inpatient - Admit Certification Admit to Inpatient:: After my assessment, the patient will require hospitalization for at least two midnights. This is because of the severity of symptoms shown, intensity of services needed, and/or the medical risk in this patient being treated as an outpatient. - POA Present On Arrival: None
[2018-06-30 09:10] LABS: BASO % 0.5 % (0.0-2.0); EOS # 0.2 K/uL (0.0-0.7); EOS % 2.3 % (0.0-4.0); HEMOGLOBIN 14.8 g/dL (12.0-18.0); LYMPH # 1.8 K/uL (1.0-4.3); LYMPH % 20.1 % (20.0-40.0); MEAN CELL VOLUME 87.9 fl (80.0-94.0); MEAN CORPUSCULAR HEMOGLOBIN 29.3 pg (27.0-31.0); MEAN CORPUSCULAR HGB CONC 33.3 g/dL (33.0-37.0); MONO % 11.2 % (0.0-10.0); NEUT # 5.8 K/uL (1.8-7.0); NEUT % 65.9 % (50.0-75.0); NRBC % 0.2 % (0.0-0.0); RBC 5.06 Mil/uL (4.40-5.90); RED CELL DISTRIBUTION WIDTH 13.4 % (11.5-14.5); WHITE BLOOD COUNT 8.8 K/uL (4.8-10.8)
[2018-06-30 09:14] LABS: ALB/GLOB RATIO 1.2 (1.0-2.1); ALBUMIN 4.1 g/dL (3.5-5.0); ALT/SGPT 90 U/L (21-72); AST/SGOT 105 U/L (17-59); BLOOD UREA NITROGEN 10 mg/dl (9-20); CALCIUM 9.2 mg/dL (8.4-10.2); GFR NON-AFRICAN AMERICAN > 60
[2018-06-30 10:57] VITALS: O2SAT 100
[2018-06-30 12:20] LABS: OPIATES, UR NEGATIVE (NEGATIVE)
[2018-06-30 12:21] LABS: BARBITURATES, UR NEGATIVE (NEGATIVE); BENZODIAZEPINES, UR NEGATIVE (NEGATIVE); PHENCYCLIDINE, UR NEGATIVE (NEGATIVE)
[2018-06-30] MEDS ORDERED: DiphenhydrAMINE 50 mg/ml Inj IM PRN (14:19)
[2018-06-30] MEDS ORDERED: Magnesium Hydroxide Susp 30 ml UD PO PRN (14:19)
[2018-06-30] MEDS ORDERED: Alum-Mag Hydrox-Simethicone Susp (30 mL) PO PRN (14:19)
--- NOTE | 2018-06-30 14:49 | PCM.PSYCH ---
Initial Psychiatric Evaluation - Initial Psychiatric Evaluation Type of Admission: Voluntary Legal Status: Capacity Chief Complaint (in patient's own words): I am hearing voices Patient's Reaction to Hospitalization: pt requested help History of Present Illness and Precipitating Events: pt is 47 ys old male with previous diagnosis of poly substance dependence and depression, pt has not been compliant with medications or follow up, relapsed on opiates using almost daily , also relapsed on cocaine , became increasingly depressed, , started experiencing auditory hallucinations, command type telling him to hurt himself, came to ER seeking help pt on the unit reported feeling hopeless and helpless , continues to experience auditory hallucinations, non command type putting him down, also reported having passive suicidal ideation without active plan on the unit , reported decreased sleep, decreased appetite, denied manic symptoms Current Medications: Active Medications Generic Name Dose Route Start Last Admin Trade Name Freq PRN Reason Stop Dose Admin Acetaminophen 650 mg 06/30/18 14:19 Tylenol 325mg Tab PO Q4 PRN Pain, moderate (4-7) Al Hydrox/Mg Hydrox/Simethicone 30 ml 06/30/18 14:19 Maalox Plus 30 Ml PO Q4 PRN Dyspepsia Clonidine HCl 0.1 mg 06/30/18 14:33 Catapres PO Q8 PRN Opiate reversal Diphenhydramine HCl 50 mg 06/30/18 14:19 Benadryl IM Q6 PRN Extrapyramidal S/S Unable PO Diphenhydramine HCl 50 mg 06/30/18 14:19 Benadryl PO Q6 PRN Extrapyramidal Symptoms Haloperidol 5 mg 06/30/18 14:19 Haldol PO Q6 PRN Agitation Haloperidol Lactate 5 mg 06/30/18 14:19 Haldol IM Q6 PRN Agitation, Unable to Take PO Loperamide HCl 2 mg 06/30/18 14:18 Imodium PO QID PRN Diarrhea Magnesium Hydroxide 30 ml 06/30/18 14:19 Milk Of Magnesia PO HS PRN Constipation Risperidone 1 mg 06/30/18 22:00 Risperdal Tab PO HS ANNETTE Past Psychiatric History - Past Psychiatric History Explanation of prior treatment: multiple inpatient hospitalizations for detox, history of non compliance with treatment History of ETOH/Drug Use: hx of opiate and cocaine use Pertinent Medical Hx (Current Medical&Sleep Prob, Allergies): Allergies Allergy/AdvReac Type Severity Reaction Status Date / Time No Known Allergies Allergy Verified 06/28/18 16:28 Mirtazapine [Remeron] 15 mg PO HS 14 Days #15 tab 02/02/18 Multimineral/Multivitamin [Therapeutic-M Tab] 1 tab PO DAILY 14 Days #14 tab Risperidone [Risperdal M-TAB] 0.5 mg PO BID 14 Days #30 odt 02/02/18 methIMAzole [Tapazole] 5 mg PO TID 14 Days #45 tab 02/02/18 Ibuprofen [Motrin] 600 mg PO TID 7 Days tab 06/21/18 Cephalexin [Keflex] 500 mg PO BID #14 capsule 06/28/18 Loperamide [Loperamide HCl] 2 mg PO Q8 #10 cap 06/28/18 Mental Status Examination - Personal Presentation Personal Presentation: Looks older than stated age - Affect Affect: Constricted, Depressed - Motor Activity Motor Activity: Psychomotor Retardation - Reliability in Providing Information Reliability in Providing Information: Poor, due to alteration in thoughts, Poor , due to altered mood - Speech Speech: Tangential - Mood Mood: Depressed, Anxious - Formal Thought Process Formal Thought Process: Hallucinations, Paranoia, Circumstantial - Hallucinations/Delusions Hallucinations: Auditory Additional comments: pt reported non command auditory hallucinations - Obsessions/Compulsions Obsessions: No Compulsions: No - Cognitive Functions Orientation: Person, Place Sensorium: Alert Attention/Concentration: Easily distracted Judgement: Imparied, as evidence by: Poor judgement, Imparied, as evidence by: Lack of insight into illness - Risk Risk: Suicidal, Withdrawal, Diminished functioning - Strength & Assets Inventory Strength & Assets Inventory: Life experience - Limitations Additional comments: poor compliance DSM 5 DX - DSM 5 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
--- NOTE | 2018-06-30 16:30 | PCM.BM ---
Treatment Plan Problems - Problems identified on initial assessmt ineffective coping Date Initiated: 06/30/18 Time Initiated: 14:00 Date resolved: 07/07/18 Assessment reference: NA Status: Active Priority: 1 Treatment assets and liabiliti Patient Assests: resourceful, self-reliant, ADL independent, physically healthy , negotiates basic needs, cognitively intact Patient Liabilities: financial problems, poor support system, relationship conflicts, substance abuse, medical problems, auditory impairment - Milieu Protocol Milieu Narrative: pt will be started on clonidine as needed and monitored for symptoms and signs of opiate withdrawal start risperidone 1mg qhs for AH start remeron 7.5mg qhs for depression motivational , group and supportive therapy Discharge/Continuing Care - Treatment Team Participation Patient/Family/SO Statement: pt will be started on clonidine as needed and monitored for symptoms and signs of opiate withdrawal start risperidone 1mg qhs for AH start remeron 7.5mg qhs for depression motivational , group and supportive therapy
--- NOTE | 2018-07-01 09:10 | CARD ---
APPROVED REPORT Date of service: 06/30/2018 EKG Measurement Heart [id number] <Conclusion> Sinus bradycardia Otherwise normal ECG
--- NOTE | 2018-07-01 16:00 | PCM.PYCHPN ---
Psychiatric Progress Note - Psychiatric Progress Note Patient seen today, length of contact: pt evaluated discussed with team chart reviewed Patient Chief Complaint: I am feeling down and I still hear voices Problems Identified/Issues Discussed: pt evaluated continues to present with depressed mood and affect related to cocaine withdrawal, pt also reported non command auditory hallucinations, discussed increasing dose of risperidone and remeron, pt continues to report feeling hopeless and helpless encouraged pt to attend groups. pt denied active thoughts of self harm Medical Problems: multiple inpatient hospitalizations for detox, history of non compliance with treatment DSM 5 Symptoms Update: cocaine induced psychosis cocaine abuse Medication Change: Yes (increase risperidone) Medical Record Reviewed: Yes Mental Status Examination - Cognitive Function Orientation: Person, Place Attention: WNL Concentration: Poor Association: WNL Fund of Knowledge: Poor Decription of patient's judgement and insights: poor insight and judgment - Mood Mood: Depressed, Anxious - Affect Affect: Constricted, Depressed - Speech Speech: Soft - Formal Thought Process Formal Thought Process: Hallucinations, Paranoia, Circumstantial Psychotic Thoughts and Behaviors: pt reported non command auditory hallucinations - Suicidal Ideation Suicidal Ideation: No - Homicidal Ideation Homicidal Ideation: No Goal/Treatment Plan - Goal/Treatment Plan Need for Continued Stay: Severe depression anxiety, Discharge may exacerbated symptoms Progress Toward Problem(s) and Goals/Treatment Plan: increase risperidone 2mg qhs for AH increase remeron 15mg qhs for depression motivational , group and supportive therapy Estimated Date of D/C: 07/04/18
--- NOTE | 2018-07-02 14:37 | PCM.PYCHPN ---
Psychiatric Progress Note - Psychiatric Progress Note Patient seen today, length of contact: pt evaluated discussed with team chart reviewed Patient Chief Complaint: I am still depressed Problems Identified/Issues Discussed: pt continues to report feeling depressed, low energy, low motivation, encouraged pt to participate in treatment and attend groups, pt denied any current perceptual disturbances, reported clearing off of the auditory hallucinations with the increase in risperidone , no reported side effects pt denied current thoughts of self harm Medical Problems: multiple inpatient hospitalizations for detox, history of non compliance with treatment DSM 5 Symptoms Update: substance induced mood disorder opiate abuse history of schizophrenia Medication Change: No (increase risperidone) Medical Record Reviewed: Yes Mental Status Examination - Cognitive Function Orientation: Person, Place Attention: WNL Concentration: Poor Association: WNL Fund of Knowledge: Poor Decription of patient's judgement and insights: poor insight and judgment - Mood Mood: Depressed, Anxious - Affect Affect: Constricted, Depressed - Speech Speech: Soft - Formal Thought Process Formal Thought Process: Hallucinations, Paranoia, Circumstantial Psychotic Thoughts and Behaviors: pt reported non command auditory hallucinations - Suicidal Ideation Suicidal Ideation: No - Homicidal Ideation Homicidal Ideation: No Goal/Treatment Plan - Goal/Treatment Plan Need for Continued Stay: Severe depression anxiety, Discharge may exacerbated symptoms Progress Toward Problem(s) and Goals/Treatment Plan: risperidone 2mg qhs for AH remeron 15mg qhs for depression encourage pt to attend groups motivational , group and supportive therapy Estimated Date of D/C: 07/04/18
--- NOTE | 2018-07-03 16:02 | PCM.PYCHPN ---
Psychiatric Progress Note - Psychiatric Progress Note Patient seen today, length of contact: pt evaluated discussed with team chart reviewed Medication Change: No (increase risperidone) Medical Record Reviewed: Yes Mental Status Examination - Cognitive Function Orientation: Person, Place Attention: WNL Concentration: Poor Association: WNL Fund of Knowledge: Poor - Mood Mood: Depressed, Anxious - Affect Affect: Constricted, Depressed - Speech Speech: Soft - Formal Thought Process Formal Thought Process: Hallucinations, Paranoia, Circumstantial - Suicidal Ideation Suicidal Ideation: No - Homicidal Ideation Homicidal Ideation: No Goal/Treatment Plan - Goal/Treatment Plan Need for Continued Stay: Severe depression anxiety, Discharge may exacerbated symptoms Estimated Date of D/C: 07/04/18
[2018-07-03 18:42] VITALS: BP 121/75; PULSE 106; RESP 20; TEMP 97.4
--- NOTE | 2018-07-04 09:39 | PCM.PYCHDC ---
Mental Status Examination - Mental Status Examination Orientation: Person, Place, Situation, Time Memory: Intact Mood: Neutral Affect: Broad Speech: Appropriate Attention: WNL Concentration: WNL Association: WNL Fund of Knowledge: WNL Formal Thought Process: No Impairment Description of patient's judgement and insight: Improved I/J Psychotic Thoughts and Behaviors: Denies AH/VH/paranoia/delusions Suicidal Ideation: No Current Homicidal Ideation?: No Discharge Summary - Discharge Note Reason for Hospitalization: As per initial HPI note: pt is 47 ys old male with previous diagnosis of poly substance dependence and depression, pt has not been compliant with medications or follow up, relapsed on opiates using almost daily , also relapsed on cocaine , became increasingly depressed, , started experiencing auditory hallucinations , command type telling him to hurt himself, came to ER seeking help pt on the unit reported feeling hopeless and helpless , continues to experience auditory hallucinations, non command type putting him down, also reported having passive suicidal ideation without active plan on the unit , reported decreased sleep, decreased appetite, denied manic symptoms Consultations:: List each consultation separately and include: 1. Reason for request. 2. Findings. 3. Follow-up Consultations: Medicine consult Summary of Hospital Course include:: 1. Description of specific treatment plan utilized for patients during their course of treatmen. 2. Summarize the time- course for resolution of acute symptoms and/or regressed behaviors. 3. Describe issues identified and worked on during hospitalization. 4. Describe medication utilized. 5. Describe medical problems identified and treated. 6. Reassessment of suicide risk Summary of Hospital Course: Patient was admitted to the psychiatry unit. Individual and group therapy were provided. Psychoeducation provided on the dangers of substance abuse. Patient was stabilized on Remeron, Risperdal and Trazodone. He submitted a 48 hr letter and will be discharged as he does not meet criteria for involuntary psychiatric commitment. He denies acute AH/VH/SI/HI. He is psychiatrically stable for discharge at this time. - Final Diagnosis (DSM 5) Condition upon Discharge: STABLE DSM 5: Substanced Induced Mood Disorder; Cocaine Use Disorder; Opioid Use Disorder Disposition: HOME/ ROUTINE Follow-up Treatment Plan: Discharge w/ outpatient follow-up Prescriptions/Medication Reconciliation: Mirtazapine [Remeron] 15 mg PO HS #30 tab risperiDONE [RisperDAL Tab] 2 mg PO HS #30 tab traZODone [Desyrel] 100 mg PO HS #30 tab - Smoking Cessation Smoking Cessation Medication prescribed: No Reason for not providing: Not indicated - Antipsychotic Medications Pt discharged on 2 or more routine antipsychotic medications: No
== END 2018-07-04 13:02 | disposition home or self-care (01) | DRG 744 ==
LOC: H.ER 07:00 → H.ERHOLD 10:30 → H.PSYCH 13:54
PROVIDERS: ADMIT Psychiatry & Neurology Psychiatry; ATTEND Psychiatry & Neurology Psychiatry
PROC: HZ52ZZZ Individual Psychotherapy for Substance Abuse Treatment, Cognitive-Behavioral (ICD-10-PCS; principal; 2018-06-30)
PROC: GZHZZZZ Group Psychotherapy (ICD-10-PCS; 2018-06-30)
PROC: GZ58ZZZ Individual Psychotherapy, Cognitive-Behavioral (ICD-10-PCS; 2018-06-30)
DX: F14.251 Cocaine dependence with cocaine-induced psychotic disorder with hallucinations (principal); F20.9 Schizophrenia, unspecified; F11.10 Opioid abuse, uncomplicated; F14.23 Cocaine dependence with withdrawal; F32.9 Major depressive disorder, single episode, unspecified; Z91.14 Patient's other noncompliance with medication regimen; Z91.19 Patient's noncompliance with other medical treatment and regimen; F41.9 Anxiety disorder, unspecified; G89.29 Other chronic pain; J45.909 Unspecified asthma, uncomplicated; K29.70 Gastritis, unspecified, without bleeding